=== PATIENT | male | born 1940 | race African-American/Black ===

== ENCOUNTER 2018-08-06 18:45 | Inpatient (IN) | payer MEDICARE, MEDICAID ==
[~2018-08-06] VITALS: Ht 188 cm; Wt 108.9 kg
[~2018-08-06 18:45] MED LIST: ASPI-1159 PO; ATOR40TA70 PO; FLUT1DIS3 INH; I; LEVEMIR SUBCUT; NOVOLOG SUBCUT
[2018-08-06] MEDS ORDERED: ALBUTEROL (0.083%) 2.5MG/3ML NEB HHN STA (19:20)
[2018-08-06] MEDS ORDERED: IPRATROPIUM BROMIDE (0.02%) 0.5MG/2.5ML NEB HHN STA (19:20)
[2018-08-06] MEDS ORDERED: METHYLPREDNISOLONE SOD SUCC 125 MG/2 ML VIAL IV STA (19:20)
[2018-08-06] MEDS ORDERED: SODIUM CHLORIDE 0.9% 1000ML BAG (SEPSIS BOLUS) IV ONE (19:30)
[2018-08-06] MEDS ORDERED: CEFTRIAXONE 1 G PREMIX 50 ML IV ONE ×2 (19:30→20:00)
[2018-08-06] MEDS ORDERED: VANCOMYCIN 1 G PREMIX 200 ML IV ONE (20:00)
[2018-08-06] MEDS ORDERED: AZITHROMYCIN 500 MG in DEXT 5% WATER 250 ML IV SCH (20:00)
[2018-08-06 20:23] LABS: BASOPHILS % 0.9 % (0.0-2.0); EOSINOPHILS % 1.3 % (0.0-5.0); HEMATOCRIT. 40.3 % (42.0-52.0); HEMOGLOBIN. 13.3 g/dL (14.0-18.0); LYMPHOCYTES % 18.8 % (20.0-50.0); MEAN CORPUSCULAR HEMOGLOBIN 31.8 pg (28.0-32.0); MEAN CORPUSCULAR VOLUME 96.4 fL (80.0-94.0); MONOCYTES % 10.5 % (2.0-8.0); NEUTROPHILS % 68.5 % (40.0-76.0); PLATELET 236 x1000/uL (130-400); RED BLOOD CELL COUNT 4.18 mill/uL (4.7-6.1); RED CELL DISTRIBUTION WIDTH 15.8 % (11.6-14.6)
[2018-08-06 20:25] LABS: CHLORIDE 100 mEq/L (98-107)
[2018-08-06 20:28] LABS: PROTHROMBIN TIME 10.1 sec (9.1-11.1)
[2018-08-06 21:27] LABS: CLARITY URINE CLEAR (CLEAR); COLOR URINE DARK YELLOW (YELLOW); KETONES URINE TRACE (NEGATIVE); LEUKOCYTE ESTERASE URINE NEGATIVE (NEGATIVE); NITRITE URINE NEGATIVE (NEGATIVE); OCCULT BLOOD URINE NEGATIVE (NEGATIVE); PH URINE 7.5 (4.5-8.0); PROTEIN URINE 2+ (NEGATIVE); SPECIFIC GRAVITY URINE 1.018 (1.005-1.030); UROBILINOGEN URINE 0.2 E.U./dL (0.2-1.0)
[2018-08-07] MEDS ORDERED: HYDROCODONE/ACETAMINOPHEN 5/325MG TABLET PO PRN (09:00)
[2018-08-07] MEDS ORDERED: LOSARTAN POTASSIUM 25 MG TABLET PO SCH (09:00)
[2018-08-07] MEDS ORDERED: DEXTROSE 50% WATER 50ML SYRINGE IV PRN (09:15)
[2018-08-07] MEDS: AMLODIPINE 10MG TABLET PO SCH (10:01)
[2018-08-07] MEDS ORDERED: VANCOMYCIN 1 G PREMIX 200 ML IV SCH (10:15)
[2018-08-07] MEDS ORDERED: IPRATROPIUM/ALBUTEROL 0.5-3(2.5)MG/3ML NEB INH PRN (10:15)
[2018-08-07] MEDS ORDERED: ONDANSETRON HCL 4MG/2ML INJ IV PRN (10:15)
[2018-08-07] MEDS ORDERED: ACETAMINOPHEN 325MG TABLET PO PRN (10:15)
[2018-08-07] MEDS ORDERED: GUAIFENESIN 200MG/10ML SUGAR FREE UDC PO PRN (10:15)
[2018-08-07] MEDS ORDERED: MAGNESIUM/ALUMINUM HYDROXIDE/SIMETHICONE 30ML UDC PO PRN (10:15)
[2018-08-07] MEDS ORDERED: CLONIDINE 0.1MG TABLET PO PRN (10:30)
[2018-08-07] MEDS ORDERED: INSULIN LISPRO (LOW DOSE) 100 UNITS/ML SUBCUT SCH (11:03)
[2018-08-07 13:00] VITALS: BP 96/66
[2018-08-07] MEDS: BLOOD SUGAR DIAGNOSTIC STRIP TEST SCH ×3 (13:00→20:52)
[2018-08-07] MEDS ORDERED: ASPIRIN 81MG TABLET PO NR (13:20)
[2018-08-07] MEDS: INSULIN LISPRO (LOW DOSE) 100 UNITS/ML SUBCUT SCH ×3 (14:41→21:33)
[2018-08-07] MEDS: ENOXAPARIN 30MG/0.3ML SYR SUBCUT SCH (14:42)
[2018-08-07 14:59] VITALS: BP 96/66
[2018-08-07] MEDS ORDERED: FAMO-135 PO (15:38)
[2018-08-07] MEDS ORDERED: CARV6.2548 PO (15:38)
[2018-08-07] MEDS ORDERED: IPRA4AER INH (15:38)
[2018-08-07] MEDS ORDERED: INSU100I24 SQ (15:46)
[2018-08-07] MEDS ORDERED: DOCU-272 PO (15:46)
[2018-08-07] MEDS ORDERED: INSU100C6 SQ (15:46)
[2018-08-07] MEDS ORDERED: SEVE800T8 PO (15:46)
[2018-08-07] MEDS ORDERED: PARO10TA87 PO (15:46)
[2018-08-07] MEDS ORDERED: RIVA1PAT3 TP (15:46)
[2018-08-07] MEDS ORDERED: LEVO25TA7 PO (15:46)
[2018-08-07 16:00] VITALS: BP 146/51
[2018-08-07 20:00] VITALS: BP 167/77
[2018-08-07] MEDS ORDERED: VANCOMYCIN 1 G PREMIX 200 ML IV NR (21:00)
[2018-08-07] MEDS: ATORVASTATIN CALCIUM 40MG TABLET PO SCH (21:34)
[2018-08-07] MEDS: CARVEDILOL 6.25 MG TABLET PO SCH (21:34)
[2018-08-08] VITALS: BP 150/60
[2018-08-08 04:00] VITALS: BP 155/66
[2018-08-08] MEDS: BLOOD SUGAR DIAGNOSTIC STRIP TEST SCH ×4 (06:38→20:35)
[2018-08-08 07:03] LABS: BASOPHILS % 0.9 % (0.0-2.0); EOSINOPHILS % 0.2 % (0.0-5.0); HEMATOCRIT. 35.3 % (42.0-52.0); HEMOGLOBIN. 11.6 g/dL (14.0-18.0); LYMPHOCYTES % 13.9 % (20.0-50.0); MEAN PLATELET VOLUME 8.5 fl (7.4-10.4); MONOCYTES % 11.6 % (2.0-8.0); NEUTROPHILS % 73.4 % (40.0-76.0); PLATELET 224 x1000/uL (130-400); RED BLOOD CELL COUNT 3.64 mill/uL (4.7-6.1)
[2018-08-08 07:42] LABS: PHOSPHORUS 4.2 mg/dL (2.5-4.9)
[2018-08-08 08:00] VITALS: BP 182/44
[2018-08-08] MEDS ORDERED: LOSARTAN POTASSIUM 50 MG TABLET PO SCH (09:00)
[2018-08-08] MEDS: ENOXAPARIN 30MG/0.3ML SYR SUBCUT SCH (09:03)
[2018-08-08] MEDS: AMLODIPINE 10MG TABLET PO SCH (09:04)
[2018-08-08] MEDS: CARVEDILOL 6.25 MG TABLET PO SCH ×2 (09:04→20:38)
[2018-08-08] MEDS: PAROXETINE HCL 10MG TABLET PO SCH (09:04)
[2018-08-08] MEDS: INSULIN LISPRO (LOW DOSE) 100 UNITS/ML SUBCUT SCH ×4 (09:09→20:39)
[2018-08-08 12:00] VITALS: BP 98/59
[2018-08-08 16:00] VITALS: BP 161/66
[2018-08-08 20:00] VITALS: BP 162/56
[2018-08-08] MEDS: ATORVASTATIN CALCIUM 40MG TABLET PO SCH (20:38)
[2018-08-08] MEDS ORDERED: INSULIN GLARGINE UD 100 UNITS/ML SYR SUBCUT SCH (22:00)
[2018-08-09] VITALS: BP 145/59
[2018-08-09 04:00] VITALS: BP 155/55
[2018-08-09 08:00] VITALS: BP 166/61
[2018-08-09 08:44] LABS: BASOPHILS % 1.2 % (0.0-2.0); EOSINOPHILS % 2.3 % (0.0-5.0); HEMATOCRIT. 34.3 % (42.0-52.0); HEMOGLOBIN. 11.1 g/dL (14.0-18.0); MEAN CORPUSCULAR HEMOGLOBIN 31.3 pg (28.0-32.0); MEAN CORPUSCULAR VOLUME 96.6 fL (80.0-94.0); MEAN PLATELET VOLUME 8.2 fl (7.4-10.4); MONOCYTES % 12.6 % (2.0-8.0); NEUTROPHILS % 65.9 % (40.0-76.0); PLATELET 219 x1000/uL (130-400); RED BLOOD CELL COUNT 3.55 mill/uL (4.7-6.1); RED CELL DISTRIBUTION WIDTH 15.6 % (11.6-14.6)
[2018-08-09] MEDS: INSULIN LISPRO (LOW DOSE) 100 UNITS/ML SUBCUT SCH ×2 (08:50→13:00)
[2018-08-09] MEDS: PAROXETINE HCL 10MG TABLET PO SCH (08:52)
[2018-08-09] MEDS: AMLODIPINE 10MG TABLET PO SCH (08:52)
[2018-08-09] MEDS: CARVEDILOL 6.25 MG TABLET PO SCH (08:53)
[2018-08-09] MEDS: ENOXAPARIN 30MG/0.3ML SYR SUBCUT SCH (08:53)
[2018-08-09] MEDS ORDERED: LOSARTAN POTASSIUM 100 MG TABLET PO SCH (09:00)
[2018-08-09 09:07] LABS: PHOSPHORUS 5.5 mg/dL (2.5-4.9)
[2018-08-09 12:00] VITALS: BP 158/53
[2018-08-09] MEDS: BLOOD SUGAR DIAGNOSTIC STRIP TEST SCH (13:00)
[2018-08-09 14:33] VITALS: BP 158/53
== END 2018-08-09 16:00 | disposition home or self-care (01) | DRG 871 ==
LOC: EDBEDREQTM 19:34 → EDBEDREQSVC 19:34 → ER 19:49 → EDBEDREQ 21:47 → EDBEDREQTM 21:47 → EDBEDREQ 22:01 → EDBEDREQTM 22:01 → ENRESERV 08-07 12:10 → 6WST 08-07 12:10
PROVIDERS: ADMIT Internal Medicine Nephrology; ATTEND Internal Medicine Nephrology
PROC: 5A1D70Z Performance of Urinary Filtration, Intermittent, Less than 6 Hours Per Day (ICD-10-PCS; principal; 2018-08-07)
DX: A41.9 Sepsis, unspecified organism (principal); J96.91 Respiratory failure, unspecified with hypoxia; N18.6 End stage renal disease; G93.40 Encephalopathy, unspecified; I13.2 Hypertensive heart and chronic kidney disease with heart failure and with stage 5 chronic kidney disease, or end stage renal disease; J44.1 Chronic obstructive pulmonary disease with (acute) exacerbation; J98.11 Atelectasis; L97.429 Non-pressure chronic ulcer of left heel and midfoot with unspecified severity; N25.81 Secondary hyperparathyroidism of renal origin; E11.649 Type 2 diabetes mellitus with hypoglycemia without coma; E11.22 Type 2 diabetes mellitus with diabetic chronic kidney disease; E11.621 Type 2 diabetes mellitus with foot ulcer; E78.5 Hyperlipidemia, unspecified; M19.90 Unspecified osteoarthritis, unspecified site; M21.542 Acquired clubfoot, left foot; M21.541 Acquired clubfoot, right foot; F03.90 Unspecified dementia, unspecified severity, without behavioral disturbance, psychotic disturbance, mood disturbance, and anxiety; F32.9 Major depressive disorder, single episode, unspecified; I25.10 Atherosclerotic heart disease of native coronary artery without angina pectoris; E11.51 Type 2 diabetes mellitus with diabetic peripheral angiopathy without gangrene; T68.XXXA Hypothermia, initial encounter; I50.9 Heart failure, unspecified; I25.2 Old myocardial infarction; Z87.891 Personal history of nicotine dependence; Z86.73 Personal history of transient ischemic attack (TIA), and cerebral infarction without residual deficits; Z99.2 Dependence on renal dialysis; Z79.4 Long term (current) use of insulin; Z79.82 Long term (current) use of aspirin; Z79.899 Other long term (current) drug therapy; Z88.0 Allergy status to penicillin; Z83.3 Family history of diabetes mellitus; Z82.49 Family history of ischemic heart disease and other diseases of the circulatory system
CPT/HCPCS: 36415; 71045; 80048; 80202; 82962; 83036; 83605; 83735; 83880; 84100; 84145; 84484; 87070; 87077; 87186; 94640; 96361; 96365; 96366; 96367; 96372; 96375; 99291; J0456; J0696; J1650; J1815; J2930; J3370; J7030; J7040; J7060; J7611; J7620

== ENCOUNTER → 2018-08-18 | Outpatient (CLI) | payer MEDICARE, MEDICAID ==
[~2018-08-18] MED LIST changes: +CARV6.2548 PO; +DOCU-272 PO; +FAMO-135 PO; -I; +INSU100C6 SQ; +INSU100I24 SQ; +IPRA4AER INH; -LEVEMIR SUBCUT; +LEVO25TA7 PO; -NOVOLOG SUBCUT; +PARO10TA87 PO; +RIVA1PAT3 TP; +SEVE800T8 PO
== END | disposition home or self-care (01) ==
LOC: CT 09:45
PROVIDERS: ATTEND Internal Medicine Critical Care Medicine
DX: N28.89 Other specified disorders of kidney and ureter (principal); K80.20 Calculus of gallbladder without cholecystitis without obstruction; J90 Pleural effusion, not elsewhere classified
CPT/HCPCS: 71250

== ENCOUNTER 2018-09-19 00:52 | Emergency (ER) | payer MEDICARE, MEDICAID ==
[~2018-09-19] VITALS: Ht 177.8 cm; Wt 95.0 kg
[2018-09-19] MEDS ORDERED: ACETAMINOPHEN 325MG TABLET PO STA (02:15)
[2018-09-19] MEDS ORDERED: ONDANSETRON 4MG ODT PO ONE (02:15)
[2018-09-19 02:53] LABS: HEMATOCRIT. 33.4 % (42.0-52.0); HEMOGLOBIN. 11.2 g/dL (14.0-18.0); MEAN CORPUSCULAR HEMOGLOBIN 31.2 pg (28.0-32.0); MEAN CORPUSCULAR VOLUME 93.1 fL (80.0-94.0); MEAN PLATELET VOLUME 8.5 fl (7.4-10.4); PLATELET 212 x1000/uL (130-400); RED BLOOD CELL COUNT 3.59 mill/uL (4.7-6.1); RED CELL DISTRIBUTION WIDTH 15.1 % (11.6-14.6)
[2018-09-19 02:58] LABS: PROTHROMBIN TIME 10.3 sec (9.1-11.1)
[2018-09-19 03:01] LABS: CHLORIDE 98 mEq/L (98-107)
[2018-09-19] MEDS ORDERED: ACETAMINOPHEN 325MG TABLET ONE (04:08)
[2018-09-19 07:50] LABS: PLATELET ESTIMATE NORMAL
[2018-09-19 09:05] VITALS: BP 133/65
== END 2018-09-19 09:47 | disposition home or self-care (01) ==
LOC: ER 00:52 → CANBEDREQ 11:57
DX: R10.9 Unspecified abdominal pain (principal); M54.9 Dorsalgia, unspecified; I50.9 Heart failure, unspecified; J44.9 Chronic obstructive pulmonary disease, unspecified; F03.90 Unspecified dementia, unspecified severity, without behavioral disturbance, psychotic disturbance, mood disturbance, and anxiety; E11.9 Type 2 diabetes mellitus without complications; I25.2 Old myocardial infarction; Z86.73 Personal history of transient ischemic attack (TIA), and cerebral infarction without residual deficits; Z98.890 Other specified postprocedural states; Z79.82 Long term (current) use of aspirin; Z79.4 Long term (current) use of insulin; Z79.899 Other long term (current) drug therapy; Z88.0 Allergy status to penicillin
CPT/HCPCS: 36415; 71045; 80053; 83605; 84145; 84484; 85025; 85610; 87040; 93005; 99284; Q0162

== ENCOUNTER 2018-10-08 08:52 | Inpatient (IN) | payer MEDICARE, MEDICAID ==
[~2018-10-08] VITALS: Ht 188 cm; Wt 65.8 kg
[2018-10-08] MEDS ORDERED: IPRATROPIUM BROMIDE (0.02%) 0.5MG/2.5ML NEB HHN STA (09:28)
[2018-10-08] MEDS ORDERED: ALBUTEROL (0.083%) 2.5MG/3ML NEB HHN STA (09:28)
[2018-10-08] MEDS ORDERED: METHYLPREDNISOLONE SOD SUCC 125 MG/2 ML VIAL IV STA (09:28)
[2018-10-08] MEDS ORDERED: SODIUM CHLORIDE 0.9% 1000ML BAG (SEPSIS BOLUS) IV ONE (09:45)
[2018-10-08] MEDS ORDERED: ACETAMINOPHEN 325MG TABLET PO ONE (09:45)
[2018-10-08] MEDS ORDERED: LEVOFLOXACIN 500MG PREMIX 100 ML IV ONE (09:45)
[2018-10-08 09:49] LABS: HEMATOCRIT. 29.4 % (42.0-52.0); HEMOGLOBIN. 9.4 g/dL (14.0-18.0); MEAN CORPUSCULAR VOLUME 93.1 fL (80.0-94.0); MEAN PLATELET VOLUME 7.1 fl (7.4-10.4); PLATELET 319 x1000/uL (130-400); RED BLOOD CELL COUNT 3.15 mill/uL (4.7-6.1); RED CELL DISTRIBUTION WIDTH 15.2 % (11.6-14.6)
[2018-10-08 09:55] LABS: CHLORIDE 94 mEq/L (98-107)
[2018-10-08 09:58] LABS: INR 1.1; PARTIAL THROMBOPLASTIN TIME 33.2 sec (23.4-31.0); PROTHROMBIN TIME 11.5 sec (9.1-11.1)
[2018-10-08 10:03] LABS: PHOSPHORUS 4.6 mg/dL (2.5-4.9)
[2018-10-08 10:07] LABS: PLATELET ESTIMATE NORMAL
[2018-10-08] MEDS: VANCOMYCIN 1 G PREMIX 200 ML IV SCH ×2 (10:49→12:29)
[2018-10-08] MEDS ORDERED: OSELTAMIVIR 75MG CAPSULE PO ONE (11:30)
[2018-10-08] MEDS ORDERED: IOHEXOL-300 100 ML BOTTLE ONE (16:28)
[2018-10-08] MEDS ORDERED: CLONIDINE 0.1MG TABLET PO PRN ×2 (17:30→19:45)
[2018-10-08] MEDS ORDERED: HYDROCODONE/ACETAMINOPHEN 5/325MG TABLET PO PRN (19:45)
[2018-10-08] MEDS ORDERED: ONDANSETRON HCL 4MG/2ML INJ IV PRN ×2 (19:45→20:30)
[2018-10-08] MEDS ORDERED: IPRATROPIUM/ALBUTEROL 0.5-3(2.5)MG/3ML NEB INH PRN ×2 (19:45→20:30)
[2018-10-08] MEDS ORDERED: DIPHENHYDRAMINE 50MG/ML VIAL IV PRN (19:45)
[2018-10-08] MEDS ORDERED: ACETAMINOPHEN 650MG SUPP PR PRN (19:45)
[2018-10-08] MEDS ORDERED: GUAIFENESIN 200MG/10ML SUGAR FREE UDC PO PRN ×2 (19:45→20:30)
[2018-10-08] MEDS ORDERED: MAGNESIUM/ALUMINUM HYDROXIDE/SIMETHICONE 30ML UDC PO PRN ×2 (19:45→20:30)
[2018-10-08] MEDS ORDERED: ACETAMINOPHEN 325MG TABLET PO PRN ×2 (19:45→20:30)
[2018-10-08] MEDS ORDERED: ACETAMINOPHEN 650MG/20.3ML UDC GT PRN (19:45)
[2018-10-08] MEDS ORDERED: DOCUSATE SODIUM 100MG CAPSULE PO PRN (19:45)
[2018-10-08] MEDS ORDERED: OSELTAMIVIR 75MG CAPSULE PO SCH (21:00)
[2018-10-08] MEDS ORDERED: CLONIDINE 0.2MG TABLET PO PRN (21:00)
[2018-10-08] MEDS ORDERED: CARVEDILOL 3.125 MG TABLET PO SCH (21:00)
[2018-10-08] MEDS: CARVEDILOL 12.5MG TABLET PO SCH (21:06)
[2018-10-08 21:40] VITALS: BP 151/57
[2018-10-08 21:50] VITALS: BP 151/57
[2018-10-09] MEDS ORDERED: DEXTROSE 50% WATER 50ML SYRINGE IV PRN (00:30)
[2018-10-09] MEDS: IPRATROPIUM/ALBUTEROL 0.5-3(2.5)MG/3ML NEB INH SCH ×4 (00:45→20:00)
[2018-10-09 04:00] VITALS: BP 148/54
[2018-10-09] MEDS: SODIUM CHLORIDE 0.9% INJ 3ML FLUSH IVF SCH ×3 (05:48→21:41)
[2018-10-09] MEDS: BLOOD SUGAR DIAGNOSTIC STRIP TEST SCH ×4 (05:48→21:42)
[2018-10-09 05:53] LABS: BASOPHILS % 0.2 % (0.0-2.0); HEMATOCRIT. 29.8 % (42.0-52.0); HEMOGLOBIN. 9.6 g/dL (14.0-18.0); LYMPHOCYTES % 12.9 % (20.0-50.0); MEAN CORPUSCULAR VOLUME 93.6 fL (80.0-94.0); MEAN PLATELET VOLUME 7.9 fl (7.4-10.4); MONOCYTES % 9.6 % (2.0-8.0); NEUTROPHILS % 77.3 % (40.0-76.0); PLATELET 284 x1000/uL (130-400); RED BLOOD CELL COUNT 3.19 mill/uL (4.7-6.1); RED CELL DISTRIBUTION WIDTH 15.1 % (11.6-14.6)
[2018-10-09 06:28] LABS: CHLORIDE 91 mEq/L (98-107)
[2018-10-09 07:19] LABS: CREATINE KINASE 608 IU/L (39-308)
[2018-10-09 07:20] LABS: CREATINE KINASE MB FRACTION 2.8 ng/mL (0.5-3.6)
[2018-10-09 07:21] LABS: LDL CHOLESTEROL 50 mg/dL (5-100); PHOSPHORUS 6.9 mg/dL (2.5-4.9)
[2018-10-09 07:23] LABS: HDL CHOLESTEROL 41 mg/dL (40-59)
[2018-10-09 08:00] VITALS: BP 155/60
[2018-10-09] MEDS: INSULIN LISPRO 100 UNITS/ML SUBCUT SCH ×4 (08:46→21:41)
[2018-10-09] MEDS: CARVEDILOL 12.5MG TABLET PO SCH ×2 (08:54→21:42)
[2018-10-09] MEDS: ENOXAPARIN 30MG/0.3ML SYR SUBCUT SCH (08:55)
[2018-10-09] MEDS ORDERED: LEVOFLOXACIN 500MG PREMIX 100 ML IV SCH (09:00)
[2018-10-09] MEDS ORDERED: BENZONATATE 100MG CAPSULE PO PRN (10:45)
[2018-10-09 12:00] VITALS: BP 135/48
[2018-10-09 16:00] VITALS: BP 123/97
[2018-10-09] MEDS: INSULIN GLARGINE UD 100 UNITS/ML SYR SUBCUT SCH (16:00)
[2018-10-09] MEDS: AMLODIPINE 2.5MG TABLET PO SCH ×2 (17:31→21:42)
[2018-10-09] MEDS: SEVELAMER CARBONATE 800 MG TABLET PO SCH (17:31)
[2018-10-09 20:00] VITALS: BP 129/50
[2018-10-09] MEDS ORDERED: EPOETIN ALFA 4000UNITS/ML VIAL SUBCUT SCH ×2 (21:00)
[2018-10-10] VITALS: BP 120/73
[2018-10-10] MEDS ORDERED: OSELTAMIVIR 30MG CAPSULE PO NR
[2018-10-10] MEDS: IPRATROPIUM/ALBUTEROL 0.5-3(2.5)MG/3ML NEB INH SCH ×3 (02:19→12:54)
[2018-10-10 04:00] VITALS: BP 129/45
[2018-10-10] MEDS: SODIUM CHLORIDE 0.9% INJ 3ML FLUSH IVF SCH ×3 (04:58→22:12)
[2018-10-10 05:49] LABS: BASOPHILS % 0.6 % (0.0-2.0); EOSINOPHILS % 0.3 % (0.0-5.0); HEMATOCRIT. 30.8 % (42.0-52.0); HEMOGLOBIN. 9.9 g/dL (14.0-18.0); LYMPHOCYTES % 16.5 % (20.0-50.0); MEAN CORPUSCULAR HEMOGLOBIN 30.1 pg (28.0-32.0); MEAN CORPUSCULAR VOLUME 93.8 fL (80.0-94.0); MEAN PLATELET VOLUME 8.1 fl (7.4-10.4); MONOCYTES % 10.5 % (2.0-8.0); NEUTROPHILS % 72.1 % (40.0-76.0); PLATELET 273 x1000/uL (130-400); RED BLOOD CELL COUNT 3.29 mill/uL (4.7-6.1); RED CELL DISTRIBUTION WIDTH 15.2 % (11.6-14.6)
[2018-10-10 06:18] LABS: CHLORIDE 96 mEq/L (98-107)
[2018-10-10 06:27] LABS: CREATINE KINASE 347 IU/L (39-308)
[2018-10-10 06:33] LABS: CREATINE KINASE MB FRACTION 2.4 ng/mL (0.5-3.6)
[2018-10-10] MEDS: INSULIN LISPRO 100 UNITS/ML SUBCUT SCH ×4 (06:39→21:00)
[2018-10-10] MEDS: BLOOD SUGAR DIAGNOSTIC STRIP TEST SCH ×4 (06:40→21:00)
[2018-10-10 08:00] VITALS: BP 143/48
[2018-10-10] MEDS: CARVEDILOL 12.5MG TABLET PO SCH ×2 (08:15→22:13)
[2018-10-10] MEDS: ENOXAPARIN 30MG/0.3ML SYR SUBCUT SCH (08:16)
[2018-10-10] MEDS: AMLODIPINE 2.5MG TABLET PO SCH ×2 (08:16→22:13)
[2018-10-10] MEDS: SEVELAMER CARBONATE 800 MG TABLET PO SCH ×3 (08:19→18:30)
[2018-10-10] MEDS: INSULIN GLARGINE UD 100 UNITS/ML SYR SUBCUT SCH ×2 (10:03→22:00)
[2018-10-10] MEDS ORDERED: LEVOFLOXACIN 250MG PREMIX 50 ML IV SCH (11:00)
[2018-10-10 12:00] VITALS: BP 141/58
[2018-10-10 16:00] VITALS: BP 141/54
[2018-10-10] MEDS: IPRATROPIUM/ALBUTEROL 0.5-3(2.5)MG/3ML NEB HHN SCH (20:03)
[2018-10-11 00:43] VITALS: BP 139/52
[2018-10-11] MEDS: IPRATROPIUM/ALBUTEROL 0.5-3(2.5)MG/3ML NEB HHN SCH ×4 (01:06→21:45)
[2018-10-11] MEDS: ACETYLCYSTEINE 100MG/ML 10% VIAL 4ML INH SCH ×2 (01:07→08:55)
[2018-10-11 04:00] VITALS: BP 153/50
[2018-10-11] MEDS: SODIUM CHLORIDE 0.9% INJ 3ML FLUSH IVF SCH ×3 (06:12→22:08)
[2018-10-11] MEDS: BLOOD SUGAR DIAGNOSTIC STRIP TEST SCH ×4 (07:51→21:00)
[2018-10-11 08:00] VITALS: BP 134/83
[2018-10-11] MEDS: INSULIN LISPRO 100 UNITS/ML SUBCUT SCH ×4 (08:10→21:00)
[2018-10-11] MEDS: ENOXAPARIN 30MG/0.3ML SYR SUBCUT SCH (10:10)
[2018-10-11] MEDS: AMLODIPINE 2.5MG TABLET PO SCH ×2 (10:12→22:07)
[2018-10-11] MEDS: CARVEDILOL 12.5MG TABLET PO SCH ×2 (10:12→22:07)
[2018-10-11] MEDS: INSULIN GLARGINE UD 100 UNITS/ML SYR SUBCUT SCH ×2 (10:16→22:12)
[2018-10-11] MEDS: SEVELAMER CARBONATE 800 MG TABLET PO SCH ×3 (10:45→18:28)
[2018-10-11 12:00] VITALS: BP 135/51
[2018-10-11] MEDS ORDERED: BUDESONIDE 0.5MG/2ML NEB HHN SCH (14:00)
[2018-10-11] MEDS: PREDNISONE 20MG TABLET PO SCH (16:15)
[2018-10-11 20:00] VITALS: BP 142/92
[2018-10-12] VITALS: BP 133/59
[2018-10-12] MEDS: IPRATROPIUM/ALBUTEROL 0.5-3(2.5)MG/3ML NEB HHN SCH ×3 (02:27→15:05)
[2018-10-12] MEDS: ACETYLCYSTEINE 100MG/ML 10% VIAL 4ML INH SCH (02:29)
[2018-10-12 04:00] VITALS: BP 167/53
[2018-10-12] MEDS: SODIUM CHLORIDE 0.9% INJ 3ML FLUSH IVF SCH (06:33)
[2018-10-12] MEDS: BLOOD SUGAR DIAGNOSTIC STRIP TEST SCH (06:33)
[2018-10-12 06:47] LABS: BASOPHILS % 0.3 % (0.0-2.0); HEMATOCRIT. 31.5 % (42.0-52.0); HEMOGLOBIN. 10.3 g/dL (14.0-18.0); LYMPHOCYTES % 14.2 % (20.0-50.0); MEAN CORPUSCULAR HEMOGLOBIN 29.7 pg (28.0-32.0); MEAN CORPUSCULAR VOLUME 91.5 fL (80.0-94.0); MEAN PLATELET VOLUME 8.3 fl (7.4-10.4); NEUTROPHILS % 82.5 % (40.0-76.0); PLATELET 256 x1000/uL (130-400); RED BLOOD CELL COUNT 3.45 mill/uL (4.7-6.1)
[2018-10-12 08:10] VITALS: BP 148/56
[2018-10-12] MEDS: INSULIN LISPRO 100 UNITS/ML SUBCUT SCH ×3 (08:10→19:02)
[2018-10-12] MEDS: SEVELAMER CARBONATE 800 MG TABLET PO SCH ×2 (08:12→19:02)
[2018-10-12] MEDS: CARVEDILOL 12.5MG TABLET PO SCH (08:12)
[2018-10-12] MEDS: AMLODIPINE 2.5MG TABLET PO SCH (08:12)
[2018-10-12] MEDS: PREDNISONE 20MG TABLET PO SCH (08:12)
[2018-10-12] MEDS: ENOXAPARIN 30MG/0.3ML SYR SUBCUT SCH (08:13)
[2018-10-12] MEDS: INSULIN GLARGINE UD 100 UNITS/ML SYR SUBCUT SCH (11:33)
[2018-10-12 12:00] VITALS: BP 114/57
[2018-10-12 13:13] LABS: PHOSPHORUS 4.7 mg/dL (2.5-4.9)
[2018-10-12 16:00] VITALS: BP 141/51
[2018-10-12 17:57] VITALS: BP 147/51
[2018-10-12] MEDS ORDERED: GUAIFENESIN 600MG ER TABLET PO SCH (21:00)
[2018-10-13] MEDS ORDERED: OSELTAMIVIR 30MG CAPSULE PO NR
== END 2018-10-12 19:40 | disposition home or self-care (01) | DRG 871 ==
LOC: ER 08:52 → EDBEDREQ 10:48 → 7WST 10:48 → ENRESERV 20:31
PROVIDERS: ADMIT Internal Medicine; ATTEND Internal Medicine
PROC: 5A1D70Z Performance of Urinary Filtration, Intermittent, Less than 6 Hours Per Day (ICD-10-PCS; principal; 2018-10-08)
PROC: 5A1D70Z Performance of Urinary Filtration, Intermittent, Less than 6 Hours Per Day (ICD-10-PCS; 2018-10-12)
DX: A41.9 Sepsis, unspecified organism (principal); E43 Unspecified severe protein-calorie malnutrition; N18.6 End stage renal disease; J96.00 Acute respiratory failure, unspecified whether with hypoxia or hypercapnia; J10.00 Influenza due to other identified influenza virus with unspecified type of pneumonia; I12.0 Hypertensive chronic kidney disease with stage 5 chronic kidney disease or end stage renal disease; J44.0 Chronic obstructive pulmonary disease with (acute) lower respiratory infection; C64.9 Malignant neoplasm of unspecified kidney, except renal pelvis; N25.81 Secondary hyperparathyroidism of renal origin; J44.1 Chronic obstructive pulmonary disease with (acute) exacerbation; L97.429 Non-pressure chronic ulcer of left heel and midfoot with unspecified severity; Z68.1 Body mass index [BMI] 19.9 or less, adult; R65.20 Severe sepsis without septic shock; Z99.2 Dependence on renal dialysis; D63.1 Anemia in chronic kidney disease; Z86.73 Personal history of transient ischemic attack (TIA), and cerebral infarction without residual deficits; F32.9 Major depressive disorder, single episode, unspecified; E03.9 Hypothyroidism, unspecified; F03.90 Unspecified dementia, unspecified severity, without behavioral disturbance, psychotic disturbance, mood disturbance, and anxiety; E11.22 Type 2 diabetes mellitus with diabetic chronic kidney disease; E78.5 Hyperlipidemia, unspecified; I25.10 Atherosclerotic heart disease of native coronary artery without angina pectoris; M19.90 Unspecified osteoarthritis, unspecified site; L89.629 Pressure ulcer of left heel, unspecified stage; E11.51 Type 2 diabetes mellitus with diabetic peripheral angiopathy without gangrene; E11.621 Type 2 diabetes mellitus with foot ulcer; E78.00 Pure hypercholesterolemia, unspecified; Z79.4 Long term (current) use of insulin; Z82.49 Family history of ischemic heart disease and other diseases of the circulatory system; Z87.01 Personal history of pneumonia (recurrent); Z88.0 Allergy status to penicillin; Z99.81 Dependence on supplemental oxygen; Z83.3 Family history of diabetes mellitus; E83.39 Other disorders of phosphorus metabolism
CPT/HCPCS: 36415; 71045; 71260; 74177; 80048; 80061; 82550; 82553; 82962; 83605; 83735; 84100; 84443; 84484; 85379; 87804; 93005; 93306; 93970; 96365; 96375; 99291; J0885; J1650; J1815; J1956; J2930; J3370; J7030; J7050; J7512; J7608; J7611; J7620; J7626; Q9967

== ENCOUNTER 2019-06-14 13:57 | Inpatient (IN) | payer MEDICARE, MEDICAID ==
[~2019-06-14] VITALS: Ht 172.7 cm; Wt 98.4 kg
[~2019-06-14 13:57] MED LIST changes: -ASPI-1159 PO; +ASPI-1393 PO
[2019-06-14 15:43] LABS: CHLORIDE 99 mEq/L (98-107)
[2019-06-14 15:44] LABS: PROTHROMBIN TIME 10.6 sec (9.6-11.0)
[2019-06-14 15:45] LABS: BASOPHILS % 1.1 % (0.0-2.0); EOSINOPHILS % 1.4 % (0.0-5.0); HEMATOCRIT. 33.7 % (42.0-52.0); HEMOGLOBIN. 10.9 g/dL (14.0-18.0); LYMPHOCYTES % 17.1 % (20.0-50.0); MEAN CORPUSCULAR HEMOGLOBIN 30.8 pg (28.0-32.0); MEAN CORPUSCULAR VOLUME 94.7 fL (80.0-94.0); MEAN PLATELET VOLUME 8.2 fl (7.4-10.4); MONOCYTES % 11.9 % (2.0-8.0); NEUTROPHILS % 68.5 % (40.0-76.0); PLATELET 184 x1000/uL (130-400); RED BLOOD CELL COUNT 3.56 mill/uL (4.7-6.1); RED CELL DISTRIBUTION WIDTH 15.8 % (11.6-14.6)
[2019-06-14] MEDS ORDERED: ACETAMINOPHEN 650MG/20.3ML UDC GT PRN (19:30)
[2019-06-14] MEDS ORDERED: ACETAMINOPHEN 325MG TABLET PO ONE (20:00)
[2019-06-14 21:30] VITALS: BP 165/62
[2019-06-15 00:05] VITALS: BP 113/66
[2019-06-15] MEDS ORDERED: DEXTROSE 50% WATER 50ML SYRINGE IV PRN (00:15)
[2019-06-15 04:00] VITALS: BP 149/54
[2019-06-15] MEDS: BLOOD SUGAR DIAGNOSTIC STRIP TEST SCH ×4 (06:08→21:41)
[2019-06-15 07:28] LABS: BASOPHILS % 1.1 % (0.0-2.0); EOSINOPHILS % 2.1 % (0.0-5.0); HEMATOCRIT. 32.9 % (42.0-52.0); HEMOGLOBIN. 10.8 g/dL (14.0-18.0); LYMPHOCYTES % 20.4 % (20.0-50.0); MEAN CORPUSCULAR HEMOGLOBIN 30.5 pg (28.0-32.0); MEAN PLATELET VOLUME 8.5 fl (7.4-10.4); MONOCYTES % 14.7 % (2.0-8.0); NEUTROPHILS % 61.7 % (40.0-76.0); PLATELET 188 x1000/uL (130-400); RED BLOOD CELL COUNT 3.53 mill/uL (4.7-6.1); RED CELL DISTRIBUTION WIDTH 15.6 % (11.6-14.6)
[2019-06-15 08:00] VITALS: BP 155/90
[2019-06-15] MEDS: INSULIN LISPRO 100 UNITS/ML SUBCUT SCH ×4 (08:10→21:00)
[2019-06-15] MEDS ORDERED: ENOXAPARIN 40MG/0.4ML SYR SUBCUT SCH (09:00)
[2019-06-15] MEDS: SEVELAMER CARBONATE 800 MG TABLET PO SCH ×3 (09:40→18:24)
[2019-06-15] MEDS: FAMOTIDINE 20MG TABLET PO SCH (09:40)
[2019-06-15] MEDS: DOCUSATE SODIUM 100MG CAPSULE PO SCH ×2 (09:45→18:24)
[2019-06-15] MEDS: CARVEDILOL 6.25 MG TABLET PO SCH ×2 (09:45→21:43)
[2019-06-15] MEDS: LEVOTHYROXINE SODIUM 25MCG TABLET PO SCH (09:45)
[2019-06-15] MEDS: ASPIRIN 81MG EC TABLET PO SCH (09:45)
[2019-06-15] MEDS: PAROXETINE HCL 10MG TABLET PO SCH (09:46)
[2019-06-15] MEDS: ATORVASTATIN CALCIUM 40MG TABLET PO SCH (09:50)
[2019-06-15] MEDS: BUDESONIDE 0.5MG/2ML NEB HHN SCH (10:05)
[2019-06-15] MEDS: IPRATROPIUM/ALBUTEROL 0.5-3(2.5)MG/3ML NEB NEB PRN ×2 (10:05→21:44)
[2019-06-15 20:00] VITALS: BP 162/50
[2019-06-16 00:35] VITALS: BP 159/48
[2019-06-16 04:47] VITALS: BP 152/44
[2019-06-16 06:28] LABS: EOSINOPHILS % 1.8 % (0.0-5.0); HEMATOCRIT. 32.3 % (42.0-52.0); HEMOGLOBIN. 10.4 g/dL (14.0-18.0); LYMPHOCYTES % 17.1 % (20.0-50.0); MEAN CORPUSCULAR HEMOGLOBIN 30.5 pg (28.0-32.0); MEAN CORPUSCULAR VOLUME 94.9 fL (80.0-94.0); MEAN PLATELET VOLUME 8.5 fl (7.4-10.4); MONOCYTES % 13.6 % (2.0-8.0); NEUTROPHILS % 66.5 % (40.0-76.0); PLATELET 177 x1000/uL (130-400)
[2019-06-16 06:38] LABS: PHOSPHORUS 2.7 mg/dL (2.5-4.9)
[2019-06-16] MEDS: BLOOD SUGAR DIAGNOSTIC STRIP TEST SCH ×4 (06:47→21:20)
[2019-06-16 07:49] LABS: BG BASE EXCESS 4.3 mmol/L (-2.0-2.0); BG CARBOXYHEMOGLOBIN 0.7 % (0.5-1.5); BG DEOXYHEMOGLOBIN 26.2 % (0.0-5.0); BG HCO3 ACT 30.7 mmol/L (22.0-26.0); BG METHEMOGLOBIN 0.3 % (0.0-1.5); BG OXYGEN SATURATION 73.5 % (92.0-98.5); BG OXYHEMOGLOBIN 72.8 % (94.0-97.0); BG PH 7.372 (7.350-7.450); BG PO2 38.6 mmHg (75.0-100.0); BG SAMPLE SITE RIGHT RADIAL; BG TOTAL HEMOGLOBIN 11.6 g/dL (12.0-18.0); BG VENT MODE ROOM AIR
[2019-06-16 08:00] VITALS: BP 186/63
[2019-06-16] MEDS: INSULIN LISPRO 100 UNITS/ML SUBCUT SCH ×4 (08:10→21:00)
[2019-06-16] MEDS: DOCUSATE SODIUM 100MG CAPSULE PO SCH ×2 (09:33→17:52)
[2019-06-16] MEDS: PAROXETINE HCL 10MG TABLET PO SCH (09:33)
[2019-06-16] MEDS: ENOXAPARIN 30MG/0.3ML SYR SUBCUT SCH (09:33)
[2019-06-16] MEDS: FAMOTIDINE 20MG TABLET PO SCH (09:33)
[2019-06-16] MEDS: LEVOTHYROXINE SODIUM 25MCG TABLET PO SCH (09:33)
[2019-06-16] MEDS: CARVEDILOL 6.25 MG TABLET PO SCH ×2 (09:33→21:09)
[2019-06-16] MEDS: ATORVASTATIN CALCIUM 40MG TABLET PO SCH (09:34)
[2019-06-16] MEDS: SEVELAMER CARBONATE 800 MG TABLET PO SCH ×3 (09:34→17:52)
[2019-06-16] MEDS: ASPIRIN 81MG EC TABLET PO SCH (09:35)
[2019-06-16] MEDS: BUDESONIDE 0.5MG/2ML NEB HHN SCH (09:56)
[2019-06-16] MEDS ORDERED: CLONIDINE 0.1MG TABLET PO PRN (15:15)
[2019-06-16] MEDS: LEVOFLOXACIN 250MG PREMIX 50 ML IV SCH (17:53)
[2019-06-16 20:00] VITALS: BP 156/46
[2019-06-16 20:23] VITALS: BP 164/47
[2019-06-17] VITALS (7 sets, daily range): BP systolic 137–187; BP diastolic 50–83
[2019-06-17] MEDS: BLOOD SUGAR DIAGNOSTIC STRIP TEST SCH ×4 (05:43→21:46)
[2019-06-17 07:19] LABS: BASOPHILS % 1.1 % (0.0-2.0); EOSINOPHILS % 1.3 % (0.0-5.0); HEMATOCRIT. 33.7 % (42.0-52.0); HEMOGLOBIN. 11.1 g/dL (14.0-18.0); LYMPHOCYTES % 18.1 % (20.0-50.0); MEAN CORPUSCULAR HEMOGLOBIN 30.7 pg (28.0-32.0); MEAN CORPUSCULAR VOLUME 93.6 fL (80.0-94.0); MEAN PLATELET VOLUME 8.2 fl (7.4-10.4); MONOCYTES % 14.6 % (2.0-8.0); NEUTROPHILS % 64.9 % (40.0-76.0); PLATELET 182 x1000/uL (130-400); RED CELL DISTRIBUTION WIDTH 15.5 % (11.6-14.6)
[2019-06-17 07:56] LABS: PHOSPHORUS 2.7 mg/dL (2.5-4.9)
[2019-06-17] MEDS: INSULIN LISPRO 100 UNITS/ML SUBCUT SCH ×4 (08:10→21:00)
[2019-06-17 08:23] LABS: BG BASE EXCESS 0.4 mmol/L (-2.0-2.0); BG CARBOXYHEMOGLOBIN 1.1 % (0.5-1.5); BG DEOXYHEMOGLOBIN 9.6 % (0.0-5.0); BG FRACTION INSPIRED OXYGEN 36; BG HCO3 ACT 25.3 mmol/L (22.0-26.0); BG OXYGEN SATURATION 90.3 % (92.0-98.5); BG OXYHEMOGLOBIN 89.3 % (94.0-97.0); BG PCO2 41.9 mmHg (35.0-45.0); BG PH 7.399 (7.350-7.450); BG PO2 59.3 mmHg (75.0-100.0); BG SAMPLE SITE RIGHT RADIAL; BG TOTAL HEMOGLOBIN 11.5 g/dL (12.0-18.0); BG VENT MODE NASAL CANNULA
[2019-06-17] MEDS: PAROXETINE HCL 10MG TABLET PO SCH (10:13)
[2019-06-17] MEDS: ATORVASTATIN CALCIUM 40MG TABLET PO SCH (10:13)
[2019-06-17] MEDS: ENOXAPARIN 30MG/0.3ML SYR SUBCUT SCH (10:13)
[2019-06-17] MEDS: RIVASTIGMINE 9.5MG/24HR PATCH TD SCH ×2 (10:14→10:19)
[2019-06-17] MEDS: LEVOTHYROXINE SODIUM 25MCG TABLET PO SCH (10:14)
[2019-06-17] MEDS: DOCUSATE SODIUM 100MG CAPSULE PO SCH ×2 (10:14→18:48)
[2019-06-17] MEDS: ASPIRIN 81MG EC TABLET PO SCH (10:14)
[2019-06-17] MEDS: FAMOTIDINE 20MG TABLET PO SCH (10:14)
[2019-06-17] MEDS: SEVELAMER CARBONATE 800 MG TABLET PO SCH ×3 (10:18→18:48)
[2019-06-17] MEDS: CARVEDILOL 6.25 MG TABLET PO SCH (10:27)
[2019-06-17] MEDS: BUDESONIDE 0.5MG/2ML NEB HHN SCH (10:32)
[2019-06-17] MEDS ORDERED: CLONIDINE 0.1MG TABLET PO PRN (14:15)
[2019-06-17] MEDS ORDERED: CARVEDILOL 12.5MG TABLET PO SCH (21:00)
[2019-06-17] MEDS: AMLODIPINE 5MG TABLET PO SCH (21:46)
[2019-06-17] MEDS: HYDRALAZINE HCL 50MG TABLET PO SCH (21:47)
[2019-06-17] MEDS: ONDANSETRON HCL 4MG/2ML INJ IV PRN (22:04)
[2019-06-17] MEDS: HYDROMORPHONE HCL/PF 2MG/ML CPJ IV PRN (22:06)
[2019-06-18] VITALS: BP 155/61
[2019-06-18 04:00] VITALS: BP 154/57
[2019-06-18] MEDS: BLOOD SUGAR DIAGNOSTIC STRIP TEST SCH ×4 (06:52→20:18)
[2019-06-18] MEDS: LEVOTHYROXINE SODIUM 25MCG TABLET PO SCH (07:40)
[2019-06-18 07:46] LABS: BASOPHILS % 1.2 % (0.0-2.0); EOSINOPHILS % 1.5 % (0.0-5.0); HEMOGLOBIN. 10.9 g/dL (14.0-18.0); MEAN CORPUSCULAR HEMOGLOBIN 30.5 pg (28.0-32.0); MEAN CORPUSCULAR VOLUME 94.6 fL (80.0-94.0); MONOCYTES % 12.5 % (2.0-8.0); NEUTROPHILS % 68.8 % (40.0-76.0); PLATELET 181 x1000/uL (130-400); RED BLOOD CELL COUNT 3.59 mill/uL (4.7-6.1); RED CELL DISTRIBUTION WIDTH 15.3 % (11.6-14.6)
[2019-06-18 08:09] VITALS: BP 171/47
[2019-06-18] MEDS: SEVELAMER CARBONATE 800 MG TABLET PO SCH ×2 (08:10→16:33)
[2019-06-18] MEDS: INSULIN LISPRO 100 UNITS/ML SUBCUT SCH ×4 (08:10→20:20)
[2019-06-18 08:28] LABS: PHOSPHORUS 2.9 mg/dL (2.5-4.9)
[2019-06-18] MEDS: BUDESONIDE 0.5MG/2ML NEB HHN SCH (08:38)
[2019-06-18] MEDS: HYDRALAZINE HCL 50MG TABLET PO SCH ×2 (09:00→20:18)
[2019-06-18] MEDS: AMLODIPINE 5MG TABLET PO SCH ×2 (09:00→20:18)
[2019-06-18 12:00] VITALS: BP 126/68
[2019-06-18 16:00] VITALS: BP 135/72
[2019-06-18] MEDS: LOSARTAN POTASSIUM 50 MG TABLET PO SCH (16:28)
[2019-06-18] MEDS: FAMOTIDINE 20MG TABLET PO SCH (16:28)
[2019-06-18] MEDS: ATORVASTATIN CALCIUM 40MG TABLET PO SCH (16:28)
[2019-06-18] MEDS: DOCUSATE SODIUM 100MG CAPSULE PO SCH ×2 (16:28→16:52)
[2019-06-18] MEDS: PAROXETINE HCL 10MG TABLET PO SCH (16:29)
[2019-06-18] MEDS: LEVOFLOXACIN 250MG PREMIX 50 ML IV SCH (16:35)
[2019-06-18] MEDS: RIVASTIGMINE 9.5MG/24HR PATCH TD SCH (17:30)
[2019-06-18 20:00] VITALS: BP 153/50
[2019-06-19 00:05] VITALS: BP 122/77
[2019-06-19 04:00] VITALS: BP 146/53
[2019-06-19] MEDS: BLOOD SUGAR DIAGNOSTIC STRIP TEST SCH ×4 (05:51→20:31)
[2019-06-19 06:44] LABS: EOSINOPHILS % 1.3 % (0.0-5.0); HEMATOCRIT. 33.1 % (42.0-52.0); HEMOGLOBIN. 10.7 g/dL (14.0-18.0); LYMPHOCYTES % 15.3 % (20.0-50.0); MEAN CORPUSCULAR HEMOGLOBIN 30.4 pg (28.0-32.0); MEAN CORPUSCULAR VOLUME 94.2 fL (80.0-94.0); MEAN PLATELET VOLUME 8.6 fl (7.4-10.4); MONOCYTES % 12.7 % (2.0-8.0); NEUTROPHILS % 69.7 % (40.0-76.0); PLATELET 187 x1000/uL (130-400); RED BLOOD CELL COUNT 3.51 mill/uL (4.7-6.1); RED CELL DISTRIBUTION WIDTH 15.4 % (11.6-14.6)
[2019-06-19 08:00] VITALS: BP 170/68
[2019-06-19 08:32] LABS: PHOSPHORUS 2.4 mg/dL (2.5-4.9)
[2019-06-19] MEDS: PAROXETINE HCL 10MG TABLET PO SCH (08:46)
[2019-06-19] MEDS: HYDRALAZINE HCL 50MG TABLET PO SCH ×2 (08:46→20:31)
[2019-06-19] MEDS: AMLODIPINE 5MG TABLET PO SCH ×2 (08:46→20:31)
[2019-06-19] MEDS: ATORVASTATIN CALCIUM 40MG TABLET PO SCH (08:46)
[2019-06-19] MEDS: FAMOTIDINE 20MG TABLET PO SCH (08:46)
[2019-06-19] MEDS: LEVOTHYROXINE SODIUM 25MCG TABLET PO SCH (08:46)
[2019-06-19] MEDS: SEVELAMER CARBONATE 800 MG TABLET PO SCH ×3 (08:47→17:32)
[2019-06-19] MEDS: DOCUSATE SODIUM 100MG CAPSULE PO SCH ×2 (08:47→17:32)
[2019-06-19] MEDS: RIVASTIGMINE 9.5MG/24HR PATCH TD SCH (08:47)
[2019-06-19] MEDS: LOSARTAN POTASSIUM 50 MG TABLET PO SCH (08:47)
[2019-06-19] MEDS: INSULIN LISPRO 100 UNITS/ML SUBCUT SCH ×4 (08:48→20:36)
[2019-06-19] MEDS: BUDESONIDE 0.5MG/2ML NEB HHN SCH (09:33)
[2019-06-19 12:00] VITALS: BP 168/75
[2019-06-19] MEDS: CLONIDINE 0.2MG TABLET PO SCH ×2 (13:41→20:31)
[2019-06-19] MEDS: ONDANSETRON HCL 4MG/2ML INJ IV PRN (14:14)
[2019-06-19 16:00] VITALS: BP 170/74
[2019-06-19 20:00] VITALS: BP 145/63
[2019-06-20 00:05] VITALS: BP 159/52
[2019-06-20 04:00] VITALS: BP 153/64
[2019-06-20] MEDS: CLONIDINE 0.2MG TABLET PO SCH ×3 (05:36→21:12)
[2019-06-20] MEDS: BLOOD SUGAR DIAGNOSTIC STRIP TEST SCH ×4 (05:40→21:33)
[2019-06-20 08:00] VITALS: BP 141/64
[2019-06-20] MEDS: INSULIN LISPRO 100 UNITS/ML SUBCUT SCH ×4 (08:10→21:00)
[2019-06-20] MEDS: BUDESONIDE 0.5MG/2ML NEB HHN SCH (08:43)
[2019-06-20] MEDS: SEVELAMER CARBONATE 800 MG TABLET PO SCH ×3 (09:22→17:40)
[2019-06-20] MEDS: LEVOTHYROXINE SODIUM 25MCG TABLET PO SCH (09:22)
[2019-06-20] MEDS: RIVASTIGMINE 9.5MG/24HR PATCH TD SCH (09:22)
[2019-06-20] MEDS: AMLODIPINE 5MG TABLET PO SCH ×2 (09:27→21:12)
[2019-06-20] MEDS: ATORVASTATIN CALCIUM 40MG TABLET PO SCH (09:27)
[2019-06-20] MEDS: PAROXETINE HCL 10MG TABLET PO SCH (09:27)
[2019-06-20] MEDS: HYDRALAZINE HCL 50MG TABLET PO SCH ×2 (09:27→21:12)
[2019-06-20] MEDS: LOSARTAN POTASSIUM 50 MG TABLET PO SCH (09:27)
[2019-06-20] MEDS: FAMOTIDINE 20MG TABLET PO SCH (09:27)
[2019-06-20] MEDS: DOCUSATE SODIUM 100MG CAPSULE PO SCH ×2 (09:27→17:40)
[2019-06-20 12:00] VITALS: BP 116/41
[2019-06-20 16:00] VITALS: BP 138/58
[2019-06-20] MEDS ORDERED: LEVOFLOXACIN 250MG TABLET PO SCH (17:00)
[2019-06-20 20:00] VITALS: BP 139/49
[2019-06-21] VITALS (8 sets, daily range): BP systolic 122–164; BP diastolic 44–88
[2019-06-21] MEDS: CLONIDINE 0.2MG TABLET PO SCH ×3 (05:46→21:56)
[2019-06-21] MEDS: BLOOD SUGAR DIAGNOSTIC STRIP TEST SCH ×4 (05:50→21:55)
[2019-06-21 05:56] LABS: BASOPHILS % 1.2 % (0.0-2.0); EOSINOPHILS % 1.8 % (0.0-5.0); HEMATOCRIT. 31.7 % (42.0-52.0); HEMOGLOBIN. 10.3 g/dL (14.0-18.0); INR 1.1; LYMPHOCYTES % 18.8 % (20.0-50.0); MEAN CORPUSCULAR HEMOGLOBIN 30.4 pg (28.0-32.0); MEAN CORPUSCULAR VOLUME 93.3 fL (80.0-94.0); MEAN PLATELET VOLUME 8.7 fl (7.4-10.4); MONOCYTES % 14.9 % (2.0-8.0); NEUTROPHILS % 63.3 % (40.0-76.0); PARTIAL THROMBOPLASTIN TIME 31.2 sec (23.4-31.0); PLATELET 187 x1000/uL (130-400); PROTHROMBIN TIME 10.8 sec (9.6-11.0); RED CELL DISTRIBUTION WIDTH 15.2 % (11.6-14.6)
[2019-06-21 06:14] LABS: PHOSPHORUS 3.1 mg/dL (2.5-4.9)
[2019-06-21] MEDS: INSULIN LISPRO 100 UNITS/ML SUBCUT SCH ×4 (08:10→21:00)
[2019-06-21] MEDS ORDERED: SODIUM BICARBONATE 4% (2.4MEQ) 5ML VIAL IV ONE (08:10)
[2019-06-21] MEDS: SEVELAMER CARBONATE 800 MG TABLET PO SCH ×3 (08:10→17:33)
[2019-06-21] MEDS: AMLODIPINE 5MG TABLET PO SCH ×2 (08:25→21:55)
[2019-06-21] MEDS: BUDESONIDE 0.5MG/2ML NEB HHN SCH ×2 (09:00→13:20)
[2019-06-21] MEDS: LOSARTAN POTASSIUM 50 MG TABLET PO SCH (09:00)
[2019-06-21] MEDS: DOCUSATE SODIUM 100MG CAPSULE PO SCH ×2 (09:00→17:33)
[2019-06-21] MEDS: ATORVASTATIN CALCIUM 40MG TABLET PO SCH (11:03)
[2019-06-21] MEDS: HYDROMORPHONE HCL/PF 2MG/ML CPJ IV PRN ×2 (11:03→17:34)
[2019-06-21] MEDS: FAMOTIDINE 20MG TABLET PO SCH (11:04)
[2019-06-21] MEDS: RIVASTIGMINE 9.5MG/24HR PATCH TD SCH (11:04)
[2019-06-21] MEDS: LEVOTHYROXINE SODIUM 25MCG TABLET PO SCH (11:04)
[2019-06-21] MEDS: PAROXETINE HCL 10MG TABLET PO SCH (11:04)
[2019-06-21] MEDS: HYDRALAZINE HCL 50MG TABLET PO SCH ×2 (11:04→21:55)
[2019-06-21 21:14] LABS: T4 FREE 1.18 ng/dL (0.76-1.46)
[2019-06-22] VITALS: BP 134/84
[2019-06-22] MEDS: HYDROMORPHONE HCL/PF 2MG/ML CPJ IV PRN ×2 (02:25→06:37)
[2019-06-22 04:00] VITALS: BP 144/57
[2019-06-22] MEDS: BLOOD SUGAR DIAGNOSTIC STRIP TEST SCH ×2 (06:32→12:57)
[2019-06-22] MEDS: CLONIDINE 0.2MG TABLET PO SCH (06:36)
[2019-06-22 06:52] LABS: HEMATOCRIT. 34.4 % (42.0-52.0); HEMOGLOBIN. 10.9 g/dL (14.0-18.0); MEAN CORPUSCULAR HEMOGLOBIN 30.1 pg (28.0-32.0); MEAN CORPUSCULAR VOLUME 94.4 fL (80.0-94.0); PLATELET 193 x1000/uL (130-400); RED BLOOD CELL COUNT 3.64 mill/uL (4.7-6.1); RED CELL DISTRIBUTION WIDTH 15.4 % (11.6-14.6)
[2019-06-22] MEDS: LEVOTHYROXINE SODIUM 25MCG TABLET PO SCH (07:40)
[2019-06-22 08:00] VITALS: BP 130/83
[2019-06-22] MEDS: SEVELAMER CARBONATE 800 MG TABLET PO SCH (08:10)
[2019-06-22] MEDS: INSULIN LISPRO 100 UNITS/ML SUBCUT SCH (08:10)
[2019-06-22] MEDS ORDERED: ASPIRIN 81MG EC TABLET PO SCH (09:00)
[2019-06-22] MEDS: DOCUSATE SODIUM 100MG CAPSULE PO SCH (09:00)
[2019-06-22] MEDS: HYDRALAZINE HCL 50MG TABLET PO SCH (09:00)
[2019-06-22 09:07] LABS: PHOSPHORUS 2.9 mg/dL (2.5-4.9)
[2019-06-22] MEDS: BUDESONIDE 0.5MG/2ML NEB HHN SCH (10:10)
[2019-06-22] MEDS: FAMOTIDINE 20MG TABLET PO SCH (10:17)
[2019-06-22] MEDS: AMLODIPINE 5MG TABLET PO SCH (10:18)
[2019-06-22] MEDS: IPRATROPIUM/ALBUTEROL 0.5-3(2.5)MG/3ML NEB NEB PRN (10:26)
[2019-06-22] MEDS: PAROXETINE HCL 10MG TABLET PO SCH (11:00)
[2019-06-22] MEDS: LOSARTAN POTASSIUM 50 MG TABLET PO SCH (11:01)
[2019-06-22] MEDS: ATORVASTATIN CALCIUM 40MG TABLET PO SCH (11:08)
[2019-06-22] MEDS: RIVASTIGMINE 9.5MG/24HR PATCH TD SCH (11:08)
[2019-06-22 12:00] VITALS: BP 156/50
[2019-06-22 12:53] VITALS: BP 156/50
[2019-06-22 16:28] LABS: PLATELET ESTIMATE NORMAL
== END 2019-06-22 14:10 | disposition home or self-care (01) | DRG 193 ==
LOC: ER 13:57 → 7WST 15:40 → EDBEDREQ 15:42 → ENRESERV 19:46
PROVIDERS: ADMIT Internal Medicine; ATTEND Internal Medicine
PROC: 5A1D70Z Performance of Urinary Filtration, Intermittent, Less than 6 Hours Per Day (ICD-10-PCS; 2019-06-15)
PROC: 5A1D70Z Performance of Urinary Filtration, Intermittent, Less than 6 Hours Per Day (ICD-10-PCS; 2019-06-17)
PROC: 5A1D70Z Performance of Urinary Filtration, Intermittent, Less than 6 Hours Per Day (ICD-10-PCS; 2019-06-18)
PROC: 5A1D70Z Performance of Urinary Filtration, Intermittent, Less than 6 Hours Per Day (ICD-10-PCS; 2019-06-20)
PROC: 0W9B3ZZ Drainage of Left Pleural Cavity, Percutaneous Approach (ICD-10-PCS; principal; 2019-06-21)
PROC: 5A1D70Z Performance of Urinary Filtration, Intermittent, Less than 6 Hours Per Day (ICD-10-PCS; 2019-06-22)
DX: J18.9 Pneumonia, unspecified organism (principal); J96.01 Acute respiratory failure with hypoxia; N18.6 End stage renal disease; I13.2 Hypertensive heart and chronic kidney disease with heart failure and with stage 5 chronic kidney disease, or end stage renal disease; E44.0 Moderate protein-calorie malnutrition; L97.429 Non-pressure chronic ulcer of left heel and midfoot with unspecified severity; N25.81 Secondary hyperparathyroidism of renal origin; J44.0 Chronic obstructive pulmonary disease with (acute) lower respiratory infection; I31.3 Pericardial effusion (noninflammatory); J98.11 Atelectasis; E03.9 Hypothyroidism, unspecified; E11.22 Type 2 diabetes mellitus with diabetic chronic kidney disease; E11.621 Type 2 diabetes mellitus with foot ulcer; E78.5 Hyperlipidemia, unspecified; E11.51 Type 2 diabetes mellitus with diabetic peripheral angiopathy without gangrene; D64.9 Anemia, unspecified; F03.90 Unspecified dementia, unspecified severity, without behavioral disturbance, psychotic disturbance, mood disturbance, and anxiety; E78.00 Pure hypercholesterolemia, unspecified; K56.41 Fecal impaction; E11.610 Type 2 diabetes mellitus with diabetic neuropathic arthropathy; F32.9 Major depressive disorder, single episode, unspecified; I25.10 Atherosclerotic heart disease of native coronary artery without angina pectoris; I50.9 Heart failure, unspecified; Z86.73 Personal history of transient ischemic attack (TIA), and cerebral infarction without residual deficits; Z99.2 Dependence on renal dialysis; Z90.5 Acquired absence of kidney; Z99.81 Dependence on supplemental oxygen; Z99.3 Dependence on wheelchair; Z85.528 Personal history of other malignant neoplasm of kidney; Z68.33 Body mass index [BMI] 33.0-33.9, adult; Z79.51 Long term (current) use of inhaled steroids; Z79.82 Long term (current) use of aspirin; Z79.890 Hormone replacement therapy; Z79.899 Other long term (current) drug therapy; Z88.0 Allergy status to penicillin; Z82.49 Family history of ischemic heart disease and other diseases of the circulatory system
CPT/HCPCS: 32555; 36415; 36600; 71045; 71250; 74176; 80048; 82375; 82805; 82962; 83036; 83735; 83880; 84100; 84439; 84443; 84481; 84484; 94640; 99285; C1893; J1170; J1650; J1815; J1956; J2405; J3490; J7620; J7626

== ENCOUNTER 2019-06-22 23:14 | Inpatient (IN) | payer MEDICARE, MEDICAID ==
[~2019-06-22] VITALS: Ht 182.9 cm; Wt 99.8 kg
[2019-06-22] MEDS ORDERED: ACETAMINOPHEN 325MG TABLET PO STA (23:44)
[2019-06-23] MEDS ORDERED: AZITHROMYCIN 500 MG in DEXT 5% WATER 250 ML IV SCH (00:30)
[2019-06-23] MEDS ORDERED: VANCOMYCIN 1 G PREMIX 200 ML IV SCH (00:30)
[2019-06-23 00:35] LABS: BASOPHILS % 0.3 % (0.0-2.0); EOSINOPHILS % 0.7 % (0.0-5.0); HEMATOCRIT. 33.6 % (42.0-52.0); HEMOGLOBIN. 10.9 g/dL (14.0-18.0); LYMPHOCYTES % 10.7 % (20.0-50.0); MEAN CORPUSCULAR HEMOGLOBIN 30.4 pg (28.0-32.0); MEAN CORPUSCULAR VOLUME 93.4 fL (80.0-94.0); MEAN PLATELET VOLUME 8.9 fl (7.4-10.4); MONOCYTES % 10.3 % (2.0-8.0); PLATELET 196 x1000/uL (130-400); RED CELL DISTRIBUTION WIDTH 15.2 % (11.6-14.6)
[2019-06-23 00:43] LABS: CHLORIDE 102 mEq/L (98-107)
[2019-06-23] MEDS: PIPERACILLIN/TAZOBACTAM 3.375GM/50ML PREMIX IV SCH ×2 (01:21→01:59)
[2019-06-23 05:19] VITALS: BP 111/42
[2019-06-23 08:00] VITALS: BP 103/42
[2019-06-23] MEDS ORDERED: GUAIFENESIN 200MG/10ML SUGAR FREE UDC PO PRN (09:15)
[2019-06-23] MEDS ORDERED: IPRATROPIUM/ALBUTEROL 0.5-3(2.5)MG/3ML NEB HHN PRN (09:15)
[2019-06-23] MEDS ORDERED: ONDANSETRON HCL 4MG/2ML INJ IV PRN (09:15)
[2019-06-23] MEDS ORDERED: CLONIDINE 0.1MG TABLET PO PRN (09:30)
[2019-06-23] MEDS: LOSARTAN POTASSIUM 50 MG TABLET PO SCH (10:00)
[2019-06-23] MEDS ORDERED: CARVEDILOL 12.5MG TABLET PO SCH (10:00)
[2019-06-23] MEDS: ASPIRIN 81MG TABLET PO SCH (11:49)
[2019-06-23] MEDS: PAROXETINE HCL 10MG TABLET PO SCH (11:49)
[2019-06-23] MEDS: RIVASTIGMINE 9.5MG/24HR PATCH TD SCH (11:50)
[2019-06-23] MEDS ORDERED: PIPERACILLIN/TAZOBACTAM 2.25 G in DEXTROSE 5% WATER 50 ML IV SCH (12:00)
[2019-06-23] MEDS ORDERED: INFLUENZA VIRUS VACCINE(AFLURIA) 0.5ML SYR IM ONE (12:00)
[2019-06-23] MEDS ORDERED: PNEUMOCOCCAL 23-VAL P-SAC VAC 0.5 ML IM ONE (12:00)
[2019-06-23] MEDS ORDERED: DEXTROSE 50% WATER 50ML SYRINGE IV PRN (12:15)
[2019-06-23] MEDS: BLOOD SUGAR DIAGNOSTIC STRIP TEST SCH ×3 (12:27→20:46)
[2019-06-23] MEDS: INSULIN LISPRO 100 UNITS/ML SUBCUT SCH ×3 (12:40→20:46)
[2019-06-23 12:51] VITALS: BP 110/50
[2019-06-23] MEDS: ACETAMINOPHEN 325MG TABLET PO PRN (15:34)
[2019-06-23 16:30] VITALS: BP 106/50
[2019-06-23 20:24] VITALS: BP 113/54
[2019-06-23] MEDS: AMLODIPINE 5MG TABLET PO SCH (20:50)
[2019-06-23] MEDS: HYDRALAZINE HCL 25MG TABLET PO SCH (21:04)
[2019-06-23] MEDS: ATORVASTATIN CALCIUM 40MG TABLET PO SCH (21:04)
[2019-06-24] VITALS: BP 112/50
[2019-06-24 04:00] VITALS: BP 127/52
[2019-06-24 06:40] LABS: BASOPHILS % 0.9 % (0.0-2.0); EOSINOPHILS % 3.4 % (0.0-5.0); HEMATOCRIT. 32.8 % (42.0-52.0); HEMOGLOBIN. 10.8 g/dL (14.0-18.0); LYMPHOCYTES % 19.4 % (20.0-50.0); MEAN CORPUSCULAR HEMOGLOBIN 30.7 pg (28.0-32.0); MEAN CORPUSCULAR VOLUME 93.2 fL (80.0-94.0); MEAN PLATELET VOLUME 9.3 fl (7.4-10.4); MONOCYTES % 14.3 % (2.0-8.0); PLATELET 185 x1000/uL (130-400); RED BLOOD CELL COUNT 3.52 mill/uL (4.7-6.1); RED CELL DISTRIBUTION WIDTH 14.9 % (11.6-14.6)
[2019-06-24] MEDS: INSULIN LISPRO 100 UNITS/ML SUBCUT SCH ×4 (06:43→21:00)
[2019-06-24] MEDS: BLOOD SUGAR DIAGNOSTIC STRIP TEST SCH ×4 (06:43→21:00)
[2019-06-24] MEDS: LEVOTHYROXINE SODIUM 50MCG TABLET PO SCH (06:54)
[2019-06-24 08:00] VITALS: BP 164/93
[2019-06-24 09:13] LABS: PHOSPHORUS 3.6 mg/dL (2.5-4.9)
[2019-06-24] MEDS: RIVASTIGMINE 9.5MG/24HR PATCH TD SCH (09:35)
[2019-06-24] MEDS: PAROXETINE HCL 10MG TABLET PO SCH (09:35)
[2019-06-24 14:36] VITALS: BP 129/52
[2019-06-24] MEDS: AMLODIPINE 5MG TABLET PO SCH ×2 (14:53→21:00)
[2019-06-24] MEDS: HYDRALAZINE HCL 25MG TABLET PO SCH ×2 (14:53→21:00)
[2019-06-24] MEDS: ASPIRIN 81MG TABLET PO SCH (14:53)
[2019-06-24] MEDS: ENOXAPARIN 30MG/0.3ML SYR SUBCUT SCH (14:54)
[2019-06-24] MEDS: LOSARTAN POTASSIUM 50 MG TABLET PO SCH (14:54)
[2019-06-24] MEDS ORDERED: LACTULOSE 20G/30ML UDC PO PRN (15:00)
[2019-06-24] MEDS ORDERED: LACTULOSE 20G/30ML UDC PO NR (15:00)
[2019-06-24 16:00] VITALS: BP 142/44
[2019-06-24] MEDS: DOCUSATE SODIUM 100MG CAPSULE PO SCH (17:15)
[2019-06-24] MEDS: HYDROMORPHONE HCL/PF 2MG/ML CPJ IV PRN (17:15)
[2019-06-24 20:00] VITALS: BP 103/52
[2019-06-24] MEDS: ATORVASTATIN CALCIUM 40MG TABLET PO SCH (22:24)
[2019-06-25 01:17] VITALS: BP 105/60
[2019-06-25 04:00] VITALS: BP 141/55
[2019-06-25] MEDS: LEVOTHYROXINE SODIUM 50MCG TABLET PO SCH (05:56)
[2019-06-25] MEDS: BLOOD SUGAR DIAGNOSTIC STRIP TEST SCH ×4 (05:59→21:00)
[2019-06-25 07:22] LABS: HEMATOCRIT. 32.7 % (42.0-52.0); HEMOGLOBIN. 10.7 g/dL (14.0-18.0); MEAN CORPUSCULAR HEMOGLOBIN 30.5 pg (28.0-32.0); MEAN CORPUSCULAR VOLUME 93.5 fL (80.0-94.0); MEAN PLATELET VOLUME 9.4 fl (7.4-10.4); PLATELET 209 x1000/uL (130-400); RED BLOOD CELL COUNT 3.49 mill/uL (4.7-6.1)
[2019-06-25 07:31] LABS: PHOSPHORUS 3.8 mg/dL (2.5-4.9)
[2019-06-25] MEDS: INSULIN LISPRO 100 UNITS/ML SUBCUT SCH ×4 (07:40→21:00)
[2019-06-25 08:00] VITALS: BP 138/79
[2019-06-25] MEDS: ASPIRIN 81MG TABLET PO SCH (08:49)
[2019-06-25] MEDS: PAROXETINE HCL 10MG TABLET PO SCH (08:50)
[2019-06-25] MEDS: DOCUSATE SODIUM 100MG CAPSULE PO SCH ×2 (08:50→17:00)
[2019-06-25] MEDS: ENOXAPARIN 30MG/0.3ML SYR SUBCUT SCH (08:51)
[2019-06-25] MEDS: RIVASTIGMINE 9.5MG/24HR PATCH TD SCH (08:51)
[2019-06-25] MEDS: LOSARTAN POTASSIUM 50 MG TABLET PO SCH (08:53)
[2019-06-25] MEDS: AMLODIPINE 5MG TABLET PO SCH ×2 (08:53→22:09)
[2019-06-25] MEDS: HYDRALAZINE HCL 25MG TABLET PO SCH ×2 (08:53→21:00)
[2019-06-25 09:40] LABS: PLATELET ESTIMATE NORMAL
[2019-06-25 12:00] VITALS: BP 155/94
[2019-06-25] MEDS: ACETAMINOPHEN 325MG TABLET PO PRN (14:59)
[2019-06-25 16:00] VITALS: BP 136/50
[2019-06-25 20:00] VITALS: BP 152/49
[2019-06-25] MEDS: ATORVASTATIN CALCIUM 40MG TABLET PO SCH (22:09)
[2019-06-26] VITALS (7 sets, daily range): BP systolic 110–188; BP diastolic 50–75
[2019-06-26] MEDS: INSULIN LISPRO 100 UNITS/ML SUBCUT SCH ×4 (06:31→21:00)
[2019-06-26] MEDS: BLOOD SUGAR DIAGNOSTIC STRIP TEST SCH ×4 (06:31→21:03)
[2019-06-26] MEDS: LEVOTHYROXINE SODIUM 50MCG TABLET PO SCH (06:33)
[2019-06-26 07:18] LABS: HEMATOCRIT. 36.1 % (42.0-52.0); HEMOGLOBIN. 11.6 g/dL (14.0-18.0); MEAN CORPUSCULAR HEMOGLOBIN 30.2 pg (28.0-32.0); MEAN CORPUSCULAR VOLUME 93.8 fL (80.0-94.0); MEAN PLATELET VOLUME 9.3 fl (7.4-10.4); PLATELET 244 x1000/uL (130-400); RED BLOOD CELL COUNT 3.85 mill/uL (4.7-6.1); RED CELL DISTRIBUTION WIDTH 14.7 % (11.6-14.6)
[2019-06-26] MEDS: ONDANSETRON HCL 4MG/2ML INJ IV PRN ×2 (08:02→11:58)
[2019-06-26] MEDS: PAROXETINE HCL 10MG TABLET PO SCH (09:00)
[2019-06-26] MEDS: ASPIRIN 81MG TABLET PO SCH (09:00)
[2019-06-26] MEDS: DOCUSATE SODIUM 100MG CAPSULE PO SCH ×2 (09:00→17:00)
[2019-06-26] MEDS: FOLIC ACID/VITAMIN B COMP W-C TABLET PO SCH (09:00)
[2019-06-26] MEDS: HYDRALAZINE HCL 25MG TABLET PO SCH ×2 (09:00→23:13)
[2019-06-26] MEDS: AMLODIPINE 5MG TABLET PO SCH ×2 (09:00→23:13)
[2019-06-26] MEDS: LOSARTAN POTASSIUM 50 MG TABLET PO SCH (09:00)
[2019-06-26] MEDS ORDERED: MAGNESIUM/ALUMINUM HYDROXIDE/SIMETHICONE 30ML UDC PO PRN (10:00)
[2019-06-26] MEDS: ENOXAPARIN 100MG/ML SYR SUBCUT SCH (10:01)
[2019-06-26] MEDS: RIVASTIGMINE 9.5MG/24HR PATCH TD SCH (10:01)
[2019-06-26 11:59] LABS: PLATELET ESTIMATE NORMAL
[2019-06-26] MEDS: ONDANSETRON HCL 4MG/2ML INJ IV NR ×2 (13:00→18:51)
[2019-06-26] MEDS ORDERED: HYDRALAZINE 20MG/ML VIAL IV PRN (18:45)
[2019-06-26 20:10] LABS: AMYLASE 27 IU/L (25-115)
[2019-06-26] MEDS: METOCLOPRAMIDE HCL 10MG/2ML VIAL IV PRN (20:32)
[2019-06-26] MEDS: HYDROMORPHONE HCL/PF 2MG/ML CPJ IV PRN (20:34)
[2019-06-26] MEDS: ATORVASTATIN CALCIUM 40MG TABLET PO SCH (23:13)
[2019-06-27] VITALS: BP 144/60
[2019-06-27 04:00] VITALS: BP 110/60
[2019-06-27] MEDS: METOCLOPRAMIDE HCL 10MG/2ML VIAL IV PRN ×2 (05:49→17:09)
[2019-06-27] MEDS: HYDROMORPHONE HCL/PF 2MG/ML CPJ IV PRN ×2 (05:54→17:10)
[2019-06-27] MEDS: INSULIN LISPRO 100 UNITS/ML SUBCUT SCH ×3 (06:17→17:20)
[2019-06-27] MEDS: LEVOTHYROXINE SODIUM 50MCG TABLET PO SCH (06:17)
[2019-06-27] MEDS: BLOOD SUGAR DIAGNOSTIC STRIP TEST SCH ×3 (06:17→17:20)
[2019-06-27 06:40] LABS: BASOPHILS % 1.3 % (0.0-2.0); EOSINOPHILS % 1.5 % (0.0-5.0); HEMATOCRIT. 36.9 % (42.0-52.0); LYMPHOCYTES % 14.6 % (20.0-50.0); MEAN CORPUSCULAR HEMOGLOBIN 30.4 pg (28.0-32.0); MEAN CORPUSCULAR VOLUME 93.8 fL (80.0-94.0); MEAN PLATELET VOLUME 9.3 fl (7.4-10.4); MONOCYTES % 13.7 % (2.0-8.0); NEUTROPHILS % 68.9 % (40.0-76.0); PLATELET 280 x1000/uL (130-400); RED BLOOD CELL COUNT 3.93 mill/uL (4.7-6.1); RED CELL DISTRIBUTION WIDTH 15.1 % (11.6-14.6)
[2019-06-27] MEDS ORDERED: PANTOPRAZOLE SODIUM 40 MG/VIAL IV SCH (09:00)
[2019-06-27] MEDS ORDERED: BENZONATATE 100MG CAPSULE PO PRN (09:15)
[2019-06-27] MEDS: PAROXETINE HCL 10MG TABLET PO SCH (09:46)
[2019-06-27] MEDS: FOLIC ACID/VITAMIN B COMP W-C TABLET PO SCH (09:46)
[2019-06-27] MEDS: ENOXAPARIN 100MG/ML SYR SUBCUT SCH (09:47)
[2019-06-27] MEDS: AMLODIPINE 5MG TABLET PO SCH (09:48)
[2019-06-27] MEDS: ASPIRIN 81MG TABLET PO SCH (09:48)
[2019-06-27] MEDS: LOSARTAN POTASSIUM 50 MG TABLET PO SCH (09:48)
[2019-06-27] MEDS: HYDRALAZINE HCL 25MG TABLET PO SCH (09:49)
[2019-06-27] MEDS: DOCUSATE SODIUM 100MG CAPSULE PO SCH ×2 (10:34→17:09)
[2019-06-27] MEDS: RIVASTIGMINE 9.5MG/24HR PATCH TD SCH (10:34)
[2019-06-27 12:00] VITALS: BP 166/58
[2019-06-27 14:12] VITALS: BP 166/58
[2019-06-27] MEDS: IPRATROPIUM/ALBUTEROL 0.5-3(2.5)MG/3ML NEB HHN SCH ×2 (14:51→20:07)
[2019-06-27 16:00] VITALS: BP 156/57
[2019-06-27 17:10] VITALS: BP 156/57
== END 2019-06-27 19:15 | disposition home or self-care (01) | DRG 853 ==
LOC: ER 23:14 → 8WST 06-23 01:32 → EDBEDREQ 06-23 01:36 → EDBEDREQTM 06-23 01:36 → EDBEDREQ 06-23 01:55 → ENRESERV 06-23 03:59
PROVIDERS: ADMIT Internal Medicine; ATTEND Internal Medicine
PROC: 5A1D70Z Performance of Urinary Filtration, Intermittent, Less than 6 Hours Per Day (ICD-10-PCS; principal; 2019-06-23)
PROC: 5A1D70Z Performance of Urinary Filtration, Intermittent, Less than 6 Hours Per Day (ICD-10-PCS; 2019-06-23)
PROC: 0KBW0ZZ Excision of Left Foot Muscle, Open Approach (ICD-10-PCS; 2019-06-24)
PROC: 5A1D70Z Performance of Urinary Filtration, Intermittent, Less than 6 Hours Per Day (ICD-10-PCS; 2019-06-24)
DX: A41.9 Sepsis, unspecified organism (principal); J18.9 Pneumonia, unspecified organism; J96.01 Acute respiratory failure with hypoxia; N18.6 End stage renal disease; C64.9 Malignant neoplasm of unspecified kidney, except renal pelvis; I12.0 Hypertensive chronic kidney disease with stage 5 chronic kidney disease or end stage renal disease; J44.0 Chronic obstructive pulmonary disease with (acute) lower respiratory infection; J81.1 Chronic pulmonary edema; E46 Unspecified protein-calorie malnutrition; G82.20 Paraplegia, unspecified; A52.16 Charcot's arthropathy (tabetic); N25.81 Secondary hyperparathyroidism of renal origin; J90 Pleural effusion, not elsewhere classified; L97.429 Non-pressure chronic ulcer of left heel and midfoot with unspecified severity; I82.431 Acute embolism and thrombosis of right popliteal vein; Z99.2 Dependence on renal dialysis; Z90.5 Acquired absence of kidney; E11.22 Type 2 diabetes mellitus with diabetic chronic kidney disease; D64.9 Anemia, unspecified; E03.9 Hypothyroidism, unspecified; E11.42 Type 2 diabetes mellitus with diabetic polyneuropathy; E11.51 Type 2 diabetes mellitus with diabetic peripheral angiopathy without gangrene; E11.610 Type 2 diabetes mellitus with diabetic neuropathic arthropathy; E11.621 Type 2 diabetes mellitus with foot ulcer; E78.00 Pure hypercholesterolemia, unspecified; E78.5 Hyperlipidemia, unspecified; F03.90 Unspecified dementia, unspecified severity, without behavioral disturbance, psychotic disturbance, mood disturbance, and anxiety; F32.9 Major depressive disorder, single episode, unspecified; I25.10 Atherosclerotic heart disease of native coronary artery without angina pectoris; Z79.82 Long term (current) use of aspirin; Z79.899 Other long term (current) drug therapy; Z85.528 Personal history of other malignant neoplasm of kidney; Z86.73 Personal history of transient ischemic attack (TIA), and cerebral infarction without residual deficits; Z99.3 Dependence on wheelchair; Z87.01 Personal history of pneumonia (recurrent); Z86.718 Personal history of other venous thrombosis and embolism; Z99.81 Dependence on supplemental oxygen; Z88.0 Allergy status to penicillin; R26.9 Unspecified abnormalities of gait and mobility; E11.622 Type 2 diabetes mellitus with other skin ulcer; E11.65 Type 2 diabetes mellitus with hyperglycemia; Z79.4 Long term (current) use of insulin; L97.529 Non-pressure chronic ulcer of other part of left foot with unspecified severity; L97.519 Non-pressure chronic ulcer of other part of right foot with unspecified severity; K59.00 Constipation, unspecified
CPT/HCPCS: 36415; 71045; 73130; 73562; 73610; 74018; 80048; 80202; 82150; 82962; 83605; 83735; 84100; 84145; 84484; 90686; 90732; 93005; 93306; 93970; 94640; 96365; 97162; 97166; 99291; C9113; J0360; J0456; J1170; J1650; J1815; J2405; J2543; J2765; J3370; J7040; J7060; J7620

== ENCOUNTER 2019-09-22 08:13 | Inpatient (IN) | payer MEDICARE, MEDICAID ==
[~2019-09-22] VITALS: Ht 175.3 cm; Wt 90.7 kg
[~2019-09-22 08:13] MED LIST changes: -ASPI-1393 PO; +ASPI-1497 PO; -CARV6.2548 PO
[2019-09-22 09:04] LABS: CHLORIDE 98 mEq/L (98-107)
[2019-09-22 09:06] LABS: BASOPHILS % 1.1 % (0.0-2.0); EOSINOPHILS % 3.7 % (0.0-5.0); HEMATOCRIT. 28.4 % (42.0-52.0); HEMOGLOBIN. 9.5 g/dL (14.0-18.0); LYMPHOCYTES % 20.2 % (20.0-50.0); MEAN CORPUSCULAR HEMOGLOBIN 32.8 pg (28.0-32.0); MEAN CORPUSCULAR VOLUME 97.7 fL (80.0-94.0); MONOCYTES % 13.5 % (2.0-8.0); NEUTROPHILS % 61.5 % (40.0-76.0); PLATELET 282 x1000/uL (130-400); RED BLOOD CELL COUNT 2.91 mill/uL (4.7-6.1); RED CELL DISTRIBUTION WIDTH 16.3 % (11.6-14.6)
[2019-09-22] MEDS ORDERED: IPRATROPIUM/ALBUTEROL 0.5-3(2.5)MG/3ML NEB HHN PRN ×2 (10:45→14:45)
[2019-09-22] MEDS: IPRATROPIUM/ALBUTEROL 0.5-3(2.5)MG/3ML NEB HHN SCH ×3 (12:21→18:30)
[2019-09-22 13:06] LABS: PROTHROMBIN TIME 10.3 sec (9.6-11.0)
[2019-09-22] MEDS ORDERED: SODIUM BICARBONATE 4% (2.4MEQ) 5ML VIAL IV ONE (14:06)
[2019-09-22] MEDS ORDERED: CLONIDINE 0.1MG TABLET PO PRN (14:45)
[2019-09-22] MEDS ORDERED: DOCUSATE SODIUM 100MG CAPSULE PO PRN (14:45)
[2019-09-22] MEDS ORDERED: ONDANSETRON HCL 4MG/2ML INJ IV PRN (14:45)
[2019-09-22] MEDS ORDERED: GUAIFENESIN 200MG/10ML SUGAR FREE UDC PO PRN (14:45)
[2019-09-22] MEDS ORDERED: CARVEDILOL 3.125 MG TABLET PO NR (16:15)
[2019-09-22] MEDS: ACETAMINOPHEN 325MG TABLET PO PRN ×2 (18:22→23:47)
[2019-09-22] MEDS ORDERED: EPOETIN ALFA 10000UNITS/ML VIAL SUBCUT SCH (21:00)
[2019-09-22 21:30] VITALS: BP 139/51
[2019-09-22] MEDS ORDERED: FAMOTIDINE 20MG TABLET PO SCH (21:40)
[2019-09-22] MEDS ORDERED: ATORVASTATIN CALCIUM 40MG TABLET PO SCH (21:41)
[2019-09-22] MEDS ORDERED: DEXTROSE 50% WATER 50ML SYRINGE IV PRN (23:15)
[2019-09-22] MEDS: AMLODIPINE 5MG TABLET PO SCH (23:34)
[2019-09-23] VITALS (8 sets, daily range): BP systolic 128–149; BP diastolic 51–61
[2019-09-23] MEDS: IPRATROPIUM/ALBUTEROL 0.5-3(2.5)MG/3ML NEB HHN SCH ×3 (02:20→13:49)
[2019-09-23] MEDS: BLOOD SUGAR DIAGNOSTIC STRIP TEST SCH ×2 (06:26→12:20)
[2019-09-23 07:08] LABS: BASOPHILS % 1.4 % (0.0-2.0); EOSINOPHILS % 2.8 % (0.0-5.0); HEMOGLOBIN. 9.7 g/dL (14.0-18.0); LYMPHOCYTES % 18.7 % (20.0-50.0); MEAN CORPUSCULAR HEMOGLOBIN 32.6 pg (28.0-32.0); MEAN PLATELET VOLUME 7.9 fl (7.4-10.4); MONOCYTES % 14.9 % (2.0-8.0); NEUTROPHILS % 62.2 % (40.0-76.0); PLATELET 263 x1000/uL (130-400); RED BLOOD CELL COUNT 2.96 mill/uL (4.7-6.1); RED CELL DISTRIBUTION WIDTH 16.2 % (11.6-14.6)
[2019-09-23] MEDS ORDERED: LEVOTHYROXINE SODIUM 50MCG TABLET PO SCH (07:20)
[2019-09-23] MEDS: AMLODIPINE 5MG TABLET PO SCH (08:18)
[2019-09-23] MEDS: INSULIN LISPRO 100 UNITS/ML SUBCUT SCH ×2 (08:56→12:50)
[2019-09-23] MEDS ORDERED: LOSARTAN POTASSIUM 50 MG TABLET PO SCH (09:00)
[2019-09-23] MEDS ORDERED: PAROXETINE HCL 10MG TABLET PO SCH (09:00)
[2019-09-23] MEDS ORDERED: RIVASTIGMINE 9.5MG/24HR PATCH TD SCH (09:00)
[2019-09-23] MEDS ORDERED: IOHEXOL-300 100 ML BOTTLE ONE (18:52)
== END 2019-09-23 19:49 | disposition home or self-care (01) | DRG 189 ==
LOC: ER 08:15 → 6EST 09:58 → EDBEDREQSVC 16:48 → ENRESERV 20:26
PROVIDERS: ADMIT Internal Medicine; ATTEND Internal Medicine
PROC: 0W9B3ZZ Drainage of Left Pleural Cavity, Percutaneous Approach (ICD-10-PCS; principal; 2019-09-22)
PROC: 5A1D70Z Performance of Urinary Filtration, Intermittent, Less than 6 Hours Per Day (ICD-10-PCS; 2019-09-22)
PROC: 5A1D70Z Performance of Urinary Filtration, Intermittent, Less than 6 Hours Per Day (ICD-10-PCS; 2019-09-23)
DX: J96.21 Acute and chronic respiratory failure with hypoxia (principal); N18.6 End stage renal disease; I13.2 Hypertensive heart and chronic kidney disease with heart failure and with stage 5 chronic kidney disease, or end stage renal disease; E44.0 Moderate protein-calorie malnutrition; I50.42 Chronic combined systolic (congestive) and diastolic (congestive) heart failure; L97.429 Non-pressure chronic ulcer of left heel and midfoot with unspecified severity; J91.8 Pleural effusion in other conditions classified elsewhere; D64.9 Anemia, unspecified; E03.9 Hypothyroidism, unspecified; E11.22 Type 2 diabetes mellitus with diabetic chronic kidney disease; E78.00 Pure hypercholesterolemia, unspecified; E11.621 Type 2 diabetes mellitus with foot ulcer; E78.5 Hyperlipidemia, unspecified; F02.80 Dementia in other diseases classified elsewhere, unspecified severity, without behavioral disturbance, psychotic disturbance, mood disturbance, and anxiety; F32.9 Major depressive disorder, single episode, unspecified; G30.9 Alzheimer's disease, unspecified; E11.42 Type 2 diabetes mellitus with diabetic polyneuropathy; I25.10 Atherosclerotic heart disease of native coronary artery without angina pectoris; I95.1 Orthostatic hypotension; E11.51 Type 2 diabetes mellitus with diabetic peripheral angiopathy without gangrene; J44.9 Chronic obstructive pulmonary disease, unspecified; Z79.899 Other long term (current) drug therapy; Z82.49 Family history of ischemic heart disease and other diseases of the circulatory system; Z83.3 Family history of diabetes mellitus; Z85.528 Personal history of other malignant neoplasm of kidney; Z86.73 Personal history of transient ischemic attack (TIA), and cerebral infarction without residual deficits; Z90.5 Acquired absence of kidney; Z99.2 Dependence on renal dialysis; Z99.81 Dependence on supplemental oxygen
CPT/HCPCS: 32555; 36415; 71045; 71260; 80048; 80053; 82040; 82962; 83615; 83735; 83880; 84484; 85025; 88108; 88312; 93005; 94640; 99285; J0885; J1815; J3490; J7620; Q9967

== ENCOUNTER 2022-04-26 22:00 | Emergency (ER) | payer MEDICARE, MEDICAID ==
[~2022-04-26] VITALS: Ht 188 cm; Wt 86.0 kg
[~2022-04-26 22:00] MED LIST changes: +COR6 MT; +DOCU-268 PO; -DOCU-272 PO
[2022-04-26 22:53] LABS: HEMATOCRIT. 36.4 % (42.0-52.0); HEMOGLOBIN. 11.6 g/dL (14.0-18.0); MEAN CORPUSCULAR HEMOGLOBIN 30.5 pg (28.0-32.0); MEAN CORPUSCULAR VOLUME 95.7 fL (80.0-94.0); MEAN PLATELET VOLUME 8.4 fl (7.4-10.4); PLATELET 157 x1000/uL (130-400); RED CELL DISTRIBUTION WIDTH 15.9 % (11.6-14.6)
[2022-04-26 23:13] LABS: PLATELET ESTIMATE NORMAL
[2022-04-27] MEDS ORDERED: BACITRACIN ZINC OINT UDPKT TOP ONE (01:30)
[2022-04-27 14:02] VITALS: BP 181/67
== END 2022-04-27 14:08 | disposition home or self-care (01) ==
LOC: ER 22:00
DX: T82.838A Hemorrhage due to vascular prosthetic devices, implants and grafts, initial encounter (principal); X58.XXXA Exposure to other specified factors, initial encounter; J45.909 Unspecified asthma, uncomplicated; J44.9 Chronic obstructive pulmonary disease, unspecified; F03.90 Unspecified dementia, unspecified severity, without behavioral disturbance, psychotic disturbance, mood disturbance, and anxiety; E11.9 Type 2 diabetes mellitus without complications; Z86.73 Personal history of transient ischemic attack (TIA), and cerebral infarction without residual deficits; Z79.899 Other long term (current) drug therapy; Z99.2 Dependence on renal dialysis
CPT/HCPCS: 36415; 80048; 85025; 86850; 86900; 99285

== ENCOUNTER 2022-09-02 14:38 | Inpatient (IN) | payer MEDICARE, MEDICAID ==
[~2022-09-02] VITALS: Ht 175.3 cm; Wt 103.6 kg
[2022-09-02 17:21] LABS: BASOPHILS % 0.6 % (0.0-2.0); EOSINOPHILS % 1.9 % (0.0-5.0); HEMATOCRIT. 21.8 % (42.0-52.0); HEMOGLOBIN. 7.3 g/dL (14.0-18.0); LYMPHOCYTES % 11.4 % (20.0-50.0); MEAN CORPUSCULAR HEMOGLOBIN 33.3 pg (28.0-32.0); MEAN CORPUSCULAR VOLUME 99.4 fL (80.0-94.0); MEAN PLATELET VOLUME 8.6 fl (7.4-10.4); MONOCYTES % 10.4 % (2.0-8.0); NEUTROPHILS % 75.7 % (40.0-76.0); PLATELET 155 x1000/uL (130-400); RED BLOOD CELL COUNT 2.19 mill/uL (4.7-6.1); RED CELL DISTRIBUTION WIDTH 14.6 % (11.6-14.6)
[2022-09-02 17:31] LABS: PROTHROMBIN TIME 10.9 sec (9.6-11.0)
[2022-09-02 17:32] LABS: CHLORIDE 93 mEq/L (98-107)
[2022-09-02 21:00] VITALS: BP 149/50
[2022-09-02] MEDS ORDERED: IPRATROPIUM/ALBUTEROL 0.5-3(2.5)MG/3ML NEB HHN PRN (22:30)
[2022-09-02] MEDS ORDERED: ONDANSETRON HCL 4MG/2ML INJ IV PRN (22:30)
[2022-09-02] MEDS ORDERED: ACETAMINOPHEN 325MG TABLET PO PRN ×2 (22:30)
[2022-09-02] MEDS ORDERED: CLONIDINE 0.1MG TABLET PO PRN (22:30)
[2022-09-02] MEDS ORDERED: DEXTROSE 50% WATER 50ML SYRINGE IV PRN (22:30)
[2022-09-03] VITALS (7 sets, daily range): BP systolic 135–152; BP diastolic 50–58
[2022-09-03 06:44] LABS: BASOPHILS % 0.9 % (0.0-2.0); EOSINOPHILS % 3.8 % (0.0-5.0); LYMPHOCYTES % 22.2 % (20.0-50.0); MEAN CORPUSCULAR HEMOGLOBIN 33.2 pg (28.0-32.0); MEAN CORPUSCULAR VOLUME 101.1 fL (80.0-94.0); MEAN PLATELET VOLUME 9.4 fl (7.4-10.4); MONOCYTES % 14.6 % (2.0-8.0); NEUTROPHILS % 58.5 % (40.0-76.0); PLATELET 147 x1000/uL (130-400); RED BLOOD CELL COUNT 2.07 mill/uL (4.7-6.1); RED CELL DISTRIBUTION WIDTH 14.6 % (11.6-14.6)
[2022-09-03] MEDS: SODIUM CHLORIDE 0.9% INJ 3ML FLUSH IVF SCH ×3 (06:50→21:37)
[2022-09-03] MEDS: BLOOD SUGAR DIAGNOSTIC STRIP TEST SCH ×4 (06:53→20:34)
[2022-09-03] MEDS: INSULIN LISPRO 100 UNITS/ML SUBCUT SCH ×4 (06:58→20:34)
[2022-09-03 08:33] LABS: HEMATOCRIT. 20.9 % (42.0-52.0); HEMOGLOBIN. 6.9 g/dL (14.0-18.0)
[2022-09-03] MEDS ORDERED: CLINDAMYCIN 600MG PREMIX 50 ML IV NR (13:00)
[2022-09-04] VITALS (22 sets, daily range): BP systolic 133–190; BP diastolic 41–82
[2022-09-04 00:41] LABS: HEMATOCRIT 25.6 % (42.0-52.0); HEMOGLOBIN 8.7 g/dL (14.0-18.0)
[2022-09-04] MEDS ORDERED: SODIUM CHLORIDE 0.9% 1,000 ML IV SCH (00:45)
[2022-09-04 01:33] LABS: PROTHROMBIN TIME 11.1 sec (9.6-11.0)
[2022-09-04] MEDS: SODIUM CHLORIDE 0.9% INJ 3ML FLUSH IVF SCH ×2 (05:14→13:19)
[2022-09-04] MEDS: BLOOD SUGAR DIAGNOSTIC STRIP TEST SCH ×4 (06:03→20:15)
[2022-09-04] MEDS: INSULIN LISPRO 100 UNITS/ML SUBCUT SCH ×4 (06:03→20:15)
[2022-09-04] MEDS: CLINDAMYCIN 600MG PREMIX 50 ML IV NR ×2 (07:01→08:08)
[2022-09-04 07:24] LABS: BASOPHILS % 0.6 % (0.0-2.0); EOSINOPHILS % 4.4 % (0.0-5.0); HEMATOCRIT. 24.5 % (42.0-52.0); HEMOGLOBIN. 8.3 g/dL (14.0-18.0); LYMPHOCYTES % 20.6 % (20.0-50.0); MEAN CORPUSCULAR HEMOGLOBIN 33.2 pg (28.0-32.0); MEAN PLATELET VOLUME 8.9 fl (7.4-10.4); MONOCYTES % 14.2 % (2.0-8.0); NEUTROPHILS % 60.2 % (40.0-76.0); PLATELET 142 x1000/uL (130-400); RED CELL DISTRIBUTION WIDTH 15.6 % (11.6-14.6)
[2022-09-04] MEDS ORDERED: LIDOCAINE HCL/PF 1% 10 MG/ML 5ML VIAL ONE ×2 (07:42→07:50)
[2022-09-04] MEDS ORDERED: FENTANYL CITRATE/PF 50MCG/ML 2ML VIAL ONE (07:42)
[2022-09-04 07:47] LABS: PHOSPHORUS 4.2 mg/dL (2.5-4.9)
[2022-09-04] MEDS ORDERED: FENTANYL CITRATE/PF 50MCG/ML 2ML VIAL IV NR (08:10)
[2022-09-04] MEDS ORDERED: FENTANYL CITRATE/PF 50MCG/ML 2ML VIAL IV ONE (08:10)
== END 2022-09-04 21:20 | disposition home or self-care (01) | DRG 314 ==
LOC: ER 14:38 → EDBEDREQ 16:22 → 8WST 17:45 → EDBEDREQTM 17:54 → EDBEDREQ 17:54 → ENRESERV 20:41
PROVIDERS: ADMIT Internal Medicine; ATTEND Internal Medicine
PROC: 5A1D70Z Performance of Urinary Filtration, Intermittent, Less than 6 Hours Per Day (ICD-10-PCS; principal; 2022-09-03)
PROC: 30233N1 Transfusion of Nonautologous Red Blood Cells into Peripheral Vein, Percutaneous Approach (ICD-10-PCS; 2022-09-03)
PROC: 5A1D70Z Performance of Urinary Filtration, Intermittent, Less than 6 Hours Per Day (ICD-10-PCS; 2022-09-04)
PROC: 0JH60XZ Insertion of Tunneled Vascular Access Device into Chest Subcutaneous Tissue and Fascia, Open Approach (ICD-10-PCS; 2022-09-04)
PROC: 02HV33Z Insertion of Infusion Device into Superior Vena Cava, Percutaneous Approach (ICD-10-PCS; 2022-09-04)
PROC: B5181ZA Fluoroscopy of Superior Vena Cava using Low Osmolar Contrast, Guidance (ICD-10-PCS; 2022-09-04)
PROC: B548ZZA Ultrasonography of Superior Vena Cava, Guidance (ICD-10-PCS; 2022-09-04)
DX: T82.838A Hemorrhage due to vascular prosthetic devices, implants and grafts, initial encounter (principal); N18.6 End stage renal disease; I13.2 Hypertensive heart and chronic kidney disease with heart failure and with stage 5 chronic kidney disease, or end stage renal disease; L97.429 Non-pressure chronic ulcer of left heel and midfoot with unspecified severity; N25.81 Secondary hyperparathyroidism of renal origin; E44.0 Moderate protein-calorie malnutrition; J96.10 Chronic respiratory failure, unspecified whether with hypoxia or hypercapnia; D62 Acute posthemorrhagic anemia; I31.39 Other pericardial effusion (noninflammatory); E11.22 Type 2 diabetes mellitus with diabetic chronic kidney disease; Z20.822 Contact with and (suspected) exposure to COVID-19; E03.9 Hypothyroidism, unspecified; E11.51 Type 2 diabetes mellitus with diabetic peripheral angiopathy without gangrene; I50.9 Heart failure, unspecified; J44.9 Chronic obstructive pulmonary disease, unspecified; D63.1 Anemia in chronic kidney disease; E11.621 Type 2 diabetes mellitus with foot ulcer; Z68.33 Body mass index [BMI] 33.0-33.9, adult; Z88.0 Allergy status to penicillin; Z79.899 Other long term (current) drug therapy; Z99.2 Dependence on renal dialysis; Z86.73 Personal history of transient ischemic attack (TIA), and cerebral infarction without residual deficits; Z85.528 Personal history of other malignant neoplasm of kidney; Z90.5 Acquired absence of kidney; Z99.81 Dependence on supplemental oxygen; Z82.49 Family history of ischemic heart disease and other diseases of the circulatory system; Y84.8 Other medical procedures as the cause of abnormal reaction of the patient, or of later complication, without mention of misadventure at the time of the procedure; Y92.89 Other specified places as the place of occurrence of the external cause; F03.A0 Unspecified dementia, mild, without behavioral disturbance, psychotic disturbance, mood disturbance, and anxiety
CPT/HCPCS: 36415; 76937; 77001; 80048; 80053; 82962; 83036; 83735; 84100; 85014; 85018; 85025; 85049; 85384; 86850; 86900; 86920; 87426; 90935; 99152; 99153; 99285; C1750; C1769; C1887; J1642; J1815; J3010; J3490; P9016; G0500